=== PATIENT | female | born 1965 | race Caucasian/White ===

== ENCOUNTER 2018-04-07 09:29 | Emergency (ER) | payer OTHER, SELFPAY ==
[2018-04-07 09:30] VITALS: BP 150/80; PULSE 78; RESP 14; TEMP 36.5; O2SAT 98; BMI 27.8
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
== END 2018-04-07 10:19 | disposition home or self-care (01) ==
PROVIDERS: Emergency Provider Emergency Medicine; Family Provider Family Medicine; PCP Family Medicine
DX: S16.1XXA Strain of muscle, fascia and tendon at neck level, initial encounter (principal); V43.62XA Car passenger injured in collision with other type car in traffic accident, initial encounter; Y93.9 Activity, unspecified; Y92.410 Unspecified street and highway as the place of occurrence of the external cause; Y99.8 Other external cause status
CPT/HCPCS: 99282

== ENCOUNTER 2019-05-11 18:29 | Emergency (ER) | payer OTHER, SELFPAY ==
[2019-05-11 18:30] VITALS: BP 157/103; PULSE 76; RESP 17; TEMP 37.1; O2SAT 98; BMI 30.4
--- NOTE | 2019-05-11 18:46 | ED.VISSUMM ---
- ER Visit Summary Date of Service: 05/11/19 Chief Complaint: Left calf pain History of Present Illness: The patient is a 53 F who presents with left calf pain that began today. Patient states she was walking and went to walk real fast when she felt a pop in her left calf. Patient states her pain is aching and stabbing. Patient states the pain is over the mid calf area. Patient denies any paresthesias or weakness. Patient states her pain is worse with walking and better with rest. She denies any other injuries. Physical Examination: Vital signs are stable. Patient is afebrile. Patient is in no acute distress. Musculoskeletal exam reveals tenderness over the posterior aspect of the left calf. There is no bony crepitance or step-off. There is pain with dorsiflexion of the left ankle. There is no edema. There is no ecchymosis noted. Achilles tendon is intact. There is good range of motion of the left knee. Range of motion of the left ankle was limited in dorsiflexion secondary to pain. Sensation was intact to light touch bilaterally in the lower extremities. Strength is 5/5 bilateral and the lower extremities. Emergency Department Course and Treatment: Patient was advised that this is most likely a muscular strain of her left calf. Patient was instructed to use ice to the area. Patient was instructed to take ibuprofen as needed for pain. Patient was instructed to use her cane as needed to help with ambulation. Patient was given a note for work to limit her ambulation. Patient was instructed to follow-up with her primary care physician in 7 to 10 days. Patient understood and was agreeable with the plan. All questions were answered. Disposition: Discharge home Impression: Left calf strain This note was generated with [employer] dictation software. It may contain incorrect words, spelling, and punctuation that were not noted in review of the chart prior to signing ED Disposition - Plan for ED Patient: Disposition: Home or Assisted Living Diagnosis: Muscle strain of left lower leg Instructions: MUSCLE STRAIN, Extremity Referrals: Kwan Lundberg MD [Primary Care Provider] - 1-2 Weeks
== END 2019-05-11 19:12 | disposition home or self-care (01) ==
LOC: ED 18:51
PROVIDERS: Emergency Provider Emergency Medicine; Family Provider Family Medicine; PCP Family Medicine
DX: S86.912A Strain of unspecified muscle(s) and tendon(s) at lower leg level, left leg, initial encounter (principal); X50.9XXA Other and unspecified overexertion or strenuous movements or postures, initial encounter; Y93.01 Activity, walking, marching and hiking; Y92.9 Unspecified place or not applicable; Y99.9 Unspecified external cause status
CPT/HCPCS: 99282

== ENCOUNTER → 2020-06-22 11:26 | Outpatient (CLI) | payer OTHER, SELFPAY | LOC: MFPLAB 11:28 → LABSPEC 11:28 | PROVIDERS: PCP Family Medicine; Referring Provider Family Medicine; Visit Provider Family Medicine | DX: R09.89 Other specified symptoms and signs involving the circulatory and respiratory systems (principal) | CPT/HCPCS: 87635; U0003 ==

== ENCOUNTER 2021-09-22 15:59 | Outpatient (CLI) | payer OTHER, SELFPAY ==
[2021-09-22 16:02] LABS: Lyme Ab Screen Interpretation REF LAB
[2021-09-22 17:40] LABS: Absolute Lymphocyte Count 1.66 X10^3/uL (0.83-4.51); Absolute Neutrophil Count 5.1 X10^3/uL (2.0-7.7); Basophil# 0.02 X10^3/uL; Basophil% 0.3 % (0-1); Eosinophils% 1.3 % (0-5); Hematocrit 36.9 % (37-47); Hemoglobin 12.5 g/dL (12.0-15.0); Lymphocyte # 1.66 X10^3/ul (0.83-4.51); Lymphocyte % 22.4 % (19-41); Mean Corp Hgb Conc 33.9 g/dL (32-36); Mean Corpuscular Hgb 30.1 pg (27.0-32.0); Mean Corpuscular Volume 88.9 fL (81-99); Monocyte# 0.57 X10^3/uL; Monocyte% 7.7 % (0-10); NRBC Flagged by Analyzer 0 % (0-5); Neutrophil # 5.05 X10^3/uL (2.7-7.7); Platelet Count 360 K/mm3 (150-450); RBC Distribution Width CV 12.2 % (11.6-14.6); RBC Distribution Width SD 39.6 fl (35.1-43.9); Red Blood Count 4.15 M/mm3 (4.2-5.4); White Blood Count 7.4 K/mm3 (4.4-11.0)
[2021-09-22 17:56] LABS: Vitamin B12 658 pg/mL (211-911)
[2021-09-22 17:58] LABS: Erythrocyte Sedimentation Rate 15 mm/hr (0-30)
[2021-09-22 18:32] LABS: ALB/GLOB Ratio 0.9 RATIO (0.9-2.4); AST(SGOT) 21 U/L (15-37); Alanine Aminotransfer ALT/SGPT 41 U/L (13-56); Albumin, Serum 3.6 g/dL (3.2-5.0); Alkaline Phosphatase 94 U/L (45-117); Anion Gap 6 (5-15); BUN 19 mg/dL (7-18); BUN/Creat Ratio 27.6 RATIO (10-20); Calcium,Total 8.7 mg/dL (8.5-10.1); Chloride 110 mmol/L (98-107); Creatinine, Serum 0.69 mg/dL (0.55-1.02); EST Glomerular Filtration Rate 94 mL/min (>60); Est Glom Filt Rate - Afr Amer 113 mL/min (>60); Globulin 4.1 g/dL (2.2-4.2); Glucose 117 mg/dL (74-106); Potassium 4.1 mmol/L (3.5-5.1); Protein, Total 7.7 g/dL (6.4-8.2); Sodium Level 141 mmol/L (136-145); Thyroid Stim Hormone (TSH) 0.54 uIU/mL (0.358-3.74)
[2021-09-25 08:30] LABS: Lyme Scn Total Ab w/Rflx <0.91 ISR (0.00-0.90)
== END 2021-09-22 23:59 | disposition home or self-care (01) ==
LOC: MFPLAB 16:00
PROVIDERS: PCP Family Medicine; Referring Provider Family Medicine; Visit Provider Family Medicine
DX: R51.9 Headache, unspecified (principal); R41.89 Other symptoms and signs involving cognitive functions and awareness
CPT/HCPCS: 36415; 80053; 82607; 82746; 84443; 85025; 85652; 86618

== ENCOUNTER 2021-09-24 12:05 | Emergency (ER) | payer OTHER, SELFPAY ==
[2021-09-24 12:06] VITALS: BP 148/80; PULSE 75; RESP 14; TEMP 36.4; O2SAT 98; BMI 29.3
--- NOTE | 2021-09-24 12:30 | CT_ITS ---
We are attempting to reach an attending provider to discuss findings. An addendum with communication details will be sent when the communication is complete. 2STUDY: CT BRAIN WITHOUT CONTRAST REASON FOR EXAM: Female, 55 years old. Altered mental status and headache. RADIATION DOSAGE (If Supplied By Facility): CTDIvol = ( 44.99 ) mGy, DLP = ( 779.24 ) mGycm TECHNIQUE: Transaxial CT imaging of the brain was performed without administration of intravenous contrast material. Individualized dose optimization techniques were used for this CT. COMPARISON: No relevant priors. FINDINGS: Normal soft tissue structures. Normal calvarium. Extensive right parietal and temporal vasogenic edema associated with severe compression on the right lateral ventricle. There is approximately 15 mm shift of the midline to the left side. There is no evidence of intracranial hemorrhage or subdural hematoma. Normal brainstem. Normal cerebellum. Normal visualized paranasal sinuses. CT/Brain/Head without Contrast IMPRESSION: Extensive right parietal and temporal vasogenic edema with mass effect and shift of the midline to the left side concerning for underlying mass or tumor. Infarct is less likely. Correlation with MRI of the brain with contrast is recommended. Electronically Signed: Pro Barnes, at 13:36 EST ,
--- NOTE | 2021-09-24 12:32 | EX.ED.VIS.HA ---
HPI History of Present Illness Chief Complaint: Headache Narrative Narrative: Patient presents with her because of mental status changes and confusion that she has had over the last month. It is associated with headaches, sometimes on a daily basis. She states that the headaches are sometimes on the right side of her head. She denies any fevers or chills. No nausea or vomiting. No paresthesias. Her became concerned because they called their primary care physician because the patient has been having problems over the last few weeks concentrating. 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 Additionally, she passed the driveway to their house, and the driveway to pick her up at work. Earlier today, she thought it was Sunday and texted her friend/boss that she would not be coming into work today. She states that the headaches usually improved with [id number] medications. She denies any itchiness of her skin or color change. No abdominal pain. No diarrhea or dysuria. No other symptoms. She states she and her did have Covid approximately 1 to 2 months ago, but she only had a bad sore throat. She has been immunized against Covid. [facility] Medical History no medical history Home Medications multivitamin 1 tab PO DAILY 09/24/21 [History Last Taken Unknown] Allergy/AdvReac Type Severity Reaction Status Date / Time amoxicillin Allergy Itching Verified 09/24/21 12:10 Surgical History no surgical history Social History Smoking Status: Former smoker ROS ROS ED ROS Narrative Constitutional: No fever, no chills. HEENT: No sore throat. No neck pain. No loss of vision. No rhinorrhea. Cardiovascular: No chest pain. No palpitations. No pedal edema. Respiratory: No cough, no shortness of breath. Abdominal: No abdominal pain. No nausea. No vomiting. Genitourinary: No dysuria. No hematuria. Musculoskeletal: No myalgias. No arthralgias. Neurologic: Positive right-sided headaches. No dizziness. No lightheadedness. No paresthesias. Problems concentrating. Positive confusion. Skin: No rash. No change in color. Psychiatric: No depression. No anxiety. EXAM Physical Exam Narrative Exam Narrative: Afebrile. Vital signs noted. HEENT: Normocephalic. Atraumatic. PERRL, EOMI. Neck soft and supple. No point tenderness or step off. Cardiovascular: Regular rate and rhythm. No murmurs, rubs, or gallops appreciated. Respiratory: No tachypnea. Lungs clear to auscultation bilaterally. Gastrointestinal: Abdomen soft, nontender, with normoactive bowel sounds. No rebound or guarding. Neurological: Awake. Alert. Oriented x3. Nonfocal, nonlateralizing. DTRs equal and symmetric. Skin: No rash. Normal color. No pallor. Musculoskeletal: No pedal edema. Full range of motion extremities. Const Vital Signs: 09/24/21 12:06 09/24/21 14:46 Temperature 97.5 F L Temperature Source Temporal Pulse Rate 75 64 Respiratory Rate 14 18 Blood Pressure 148/80 H 128/63 H Blood Pressure Mean 102 84 Pulse Ox 98 98 Oxygen Delivery Method Room Air Room Air MDM MDM MDM Narrative Medical decision making narrative: Comprehensive work-up was pursued including CT of the brain, ammonia level, urine drug screen and alcohol level, and basic laboratory work. Discussion with the patient and her , I will look for signs of infection including pneumonia and urinary tract infection, or something neurological with CT imaging of the brain. Laboratory work is grossly unremarkable with a normal white count of 8.1, hemoglobin normal at 13.1, normal platelet count of 355. Electrolyte panel is grossly unremarkable except for glucose appropriately elevated at 115 with a normal anion gap of 5. Her urine drug screen is negative. Ethyl alcohol level is also negative. Ammonia level is normal. Of significance is the CT of the brain without contrast. I received a call from the radiologist stating that she has extensive vasogenic edema in the right temporoparietal area with 15 mm of midline shift. Underlying brain tumor cannot be ruled out. MRI is suggested, which is currently not available at this facility. Repeat examination shows her to remain awake, alert, with a normal neurological examination. In discussion with the patient and her , they are agreeable to transfer. Patient has been accepted at [facility] for an ED to ED transfer to Dr. Carroll. Transfer line did speak with Dr. Cummings with neurosurgery. Patient will be given Decadron 10 mg intravenously. It was not felt that mannitol or antiseizure medications were indicated. Patient will be transferred in stable condition. Lab Data Attestation: I reviewed the patient's lab results. Labs: Laboratory Results - last 24 hr 09/24/21 09/24/21 09/24/21 12:23 12:23 12:40 WBC 8.1 RBC 4.29 Hgb 13.1 Hct 37.9 MCV 88.3 MCH 30.5 MCHC 34.6 RDW Std Deviation 39.6 RDW Coeff of Richard 12.3 Plt Count 355 MPV 9.7 Immature Gran % (Auto) 0.400 Neut % (Auto) 70.9 H Lymph % (Auto) 20.7 [place] % (Auto) 5.7 Eos % (Auto) 1.9 Baso % (Auto) 0.4 Absolute Neuts (auto) 5.7 Absolute Lymphs (auto) 1.67 Nucleated RBC % 0 Sodium 139 Potassium 4.2 Chloride 107 Carbon Dioxide 27.0 Anion Gap 5 BUN 15 Creatinine 0.70 Estim Creat Clear Calc 80.75 Est GFR (MDRD) Af Amer 112 Est GFR (MDRD) Non-Af 93 BUN/Creatinine Ratio 21.6 H Glucose 115 H Calcium 9.3 Total Bilirubin 0.30 AST 22 ALT 39 Alkaline Phosphatase 100 Ammonia Total Protein 8.1 Albumin 3.8 Globulin 4.3 H Albumin/Globulin Ratio 0.9 Urine Color Urine Clarity Urine pH Ur Specific [place] Urine Protein Urine Glucose (UA) Urine Ketones Urine Occult Blood Urine Nitrite Urine Bilirubin Urine Urobilinogen Ur Leukocyte Esterase Urine RBC Urine WBC Ur Squamous Epith Cells Urine Bacteria Urine Mucus Urine Opiates Screen Urine Methadone Screen Ur Barbiturates Screen Ur Phencyclidine Scrn Ur Amphetamines Screen U Methamphetamin-MDMA U Benzodiazepines Scrn Urine Cocaine Screen U Cannabinoids Screen Ur Drug Screen Comment Ethyl Alcohol < 3.0 09/24/21 09/24/21 09/24/21 12:40 12:52 12:52 WBC RBC Hgb Hct MCV MCH MCHC RDW Std Deviation RDW Coeff of Richard Plt Count MPV Immature Gran % (Auto) Neut % (Auto) Lymph % (Auto) [place] % (Auto) Eos % (Auto) Baso % (Auto) Absolute Neuts (auto) Absolute Lymphs (auto) Nucleated RBC % Sodium Potassium Chloride Carbon Dioxide Anion Gap BUN Creatinine Estim Creat Clear Calc Est GFR (MDRD) Af Amer Est GFR (MDRD) Non-Af BUN/Creatinine Ratio Glucose Calcium Total Bilirubin AST ALT Alkaline Phosphatase Ammonia 18.0 Total Protein Albumin Globulin Albumin/Globulin Ratio Urine Color Yellow Urine Clarity Cloudy Urine pH 8.0 Ur Specific [place] 1.015 Urine Protein Negative Urine Glucose (UA) Normal Urine Ketones Negative Urine Occult Blood Negative Urine Nitrite Negative Urine Bilirubin Negative Urine Urobilinogen Normal Ur Leukocyte Esterase Negative Urine RBC 0 SEEN Urine WBC 0 SEEN Ur Squamous Epith Cells 0-5 SEEN Urine Bacteria 3+ Urine Mucus 0 SEEN Urine Opiates Screen NEGATIVE Urine Methadone Screen NEGATIVE Ur Barbiturates Screen NEGATIVE Ur Phencyclidine Scrn NEGATIVE Ur Amphetamines Screen NEGATIVE U Methamphetamin-MDMA NEGATIVE U Benzodiazepines Scrn NEGATIVE Urine Cocaine Screen NEGATIVE U Cannabinoids Screen NEGATIVE Ur Drug Screen Comment Ethyl Alcohol Radiography Diagnostic Testing: Clinical Impression(s) from Imaging Studies Brain CT 09/24/21 12:30 IMPRESSION: Extensive right parietal and temporal vasogenic edema with mass effect and shift of the midline to the left side concerning for underlying mass or tumor. Infarct is less likely. Correlation with MRI of the brain with contrast is recommended. Electronically Signed: Pro Barnes, at 13:36 EST , ADDENDUM: 09/24/21 1349 IMPRESSION: Extensive right parietal and temporal vasogenic edema with mass effect and shift of the midline to the left side concerning for underlying mass or tumor. Infarct is less likely. Correlation with MRI of the brain with contrast is recommended. N.B. : The above Results were Read Back by Pro Barnes to Matt Barfield MD, and understanding confirmed on 09/24/2021 13:42:10 (ET). Electronically Signed: Pro Barnes, at 13:36 EST , Chest X-Ray 09/24/21 13:02 IMPRESSION: No active pulmonary disease. Electronically Signed: Pro Barnes, at 13:43 EST , Discharge Plan Triage Chief Complaint: Headache ED Provider: Matt Barfield Dx/Rx/DC Orders Clinical Impression: Vasogenic brain edema, Confusion Prescriptions: No Action multivitamin Tablet 1 tab PO DAILY RF: 0 Primary Care Provider: Kwan Lundberg Referrals: Kwan Lundberg MD [Primary Care Provider] - Disposition Disposition: Acute Care Hospital Discharge Location: [facility]
[2021-09-24 12:36] LABS: Absolute Lymphocyte Count 1.67 X10^3/uL (0.83-4.51); Absolute Neutrophil Count 5.7 X10^3/uL (2.0-7.7); Basophil# 0.03 X10^3/uL; Basophil% 0.4 % (0-1); Eosinophil# 0.15 X10^3/uL; Eosinophils% 1.9 % (0-5); Hematocrit 37.9 % (37-47); Hemoglobin 13.1 g/dL (12.0-15.0); Lymphocyte # 1.67 X10^3/ul (0.83-4.51); Lymphocyte % 20.7 % (19-41); Mean Corp Hgb Conc 34.6 g/dL (32-36); Mean Corpuscular Hgb 30.5 pg (27.0-32.0); Mean Corpuscular Volume 88.3 fL (81-99); Mean Platelet Vol. 9.7 fl (6.2-12.0); Monocyte# 0.46 X10^3/uL; Monocyte% 5.7 % (0-10); NRBC Flagged by Analyzer 0 % (0-5); Neutrophil # 5.71 X10^3/uL (2.7-7.7); Neutrophil % 70.9 % (47-70); Platelet Count 355 K/mm3 (150-450); RBC Distribution Width CV 12.3 % (11.6-14.6); RBC Distribution Width SD 39.6 fl (35.1-43.9); Red Blood Count 4.29 M/mm3 (4.2-5.4); White Blood Count 8.1 K/mm3 (4.4-11.0)
[2021-09-24] MEDS: 0.9% Normal Saline 1,000 ML 1000 ML IV (12:46)
[2021-09-24 12:50] LABS: ALB/GLOB Ratio 0.9 RATIO (0.9-2.4); AST(SGOT) 22 U/L (15-37); Alanine Aminotransfer ALT/SGPT 39 U/L (13-56); Albumin, Serum 3.8 g/dL (3.2-5.0); Alkaline Phosphatase 100 U/L (45-117); Anion Gap 5 (5-15); BUN 15 mg/dL (7-18); BUN/Creat Ratio 21.6 RATIO (10-20); Calcium,Total 9.3 mg/dL (8.5-10.1); Chloride 107 mmol/L (98-107); EST Glomerular Filtration Rate 93 mL/min (>60); Est Glom Filt Rate - Afr Amer 112 mL/min (>60); Estimated Creatinine Clearance 80.75 ml/min; Globulin 4.3 g/dL (2.2-4.2); Glucose 115 mg/dL (74-106); Potassium 4.2 mmol/L (3.5-5.1); Protein, Total 8.1 g/dL (6.4-8.2); Sodium Level 139 mmol/L (136-145)
[2021-09-24 12:57] LABS: Mucous, Urine 0 SEEN /hpf (<or=2+); Red Blood Cells-Urine 0 SEEN /hpf (0-5); White Blood Cells 0 SEEN /hpf (0-5)
--- NOTE | 2021-09-24 13:02 | RAD_ITS ---
STUDY: X-RAY CHEST REASON FOR EXAM: Female, 55 years old. Coronary artery disease. TECHNIQUE: Single AP portable view of the chest. COMPARISON: None. FINDINGS: The lungs are clear and expanded. There is no demonstrated pleural abnormality. Normal size heart. Normal mediastinum and onur. Normal visualized pulmonary arteries. Normal visualized aortic arch and descending thoracic aorta. No demonstrated acute osseous changes. There is no demonstrated abnormality of the visualized soft tissue structures of the upper abdomen. RAD/Chest 1 View (Portable) IMPRESSION: No active pulmonary disease. Electronically Signed: Pro Barnes, at 13:43 EST ,
[2021-09-24 13:05] LABS: Color, Urine Yellow (Yellow); Glucose, Dipstick Normal (Normal); Ketone-Dipstick Negative (Negative); Leukocyte Esterase-Dipstick Negative /ul (Negative); Nitrite-Dipstick Negative (Negative); Occult Blood-Urine Negative /ul (Negative); Protein-Dipstick Negative (Negative); Specific Gravity, Urine 1.015 (1.002-1.030); Urine Bilirubin Dipstick Negative (Negative); Urine Clarity Cloudy (Clear); Urine Urobilinogen Normal (Normal)
[2021-09-24 13:12] LABS: Bacteria 3+ /hpf (None Seen); Squamous Epithelial Cells - UA 0-5 SEEN /hpf (5-10)
[2021-09-24 13:27] LABS: Amphetamine Urine VISTA NEGATIVE (<1000 ng/mL); Barbiturate Urine VISTA NEGATIVE (< 200 ng/mL); Benzodiazepine Urine VISTA NEGATIVE (< 200 ng/mL); Cocaine Urine VISTA NEGATIVE (< 300 ng/mL); Ecstacy Urine VISTA NEGATIVE (< 500 ng/mL); Methadone Urine VISTA NEGATIVE (< 300 ng/mL); PCP Urine VISTA NEGATIVE (< 25 ng/mL); THC Urine VISTA NEGATIVE (< 50 ng/mL); Vista UDS pH Range 7
[2021-09-24 13:47] LABS: Alcohol, Blood (Medical)-Serum < 3.0 mg/dL
[2021-09-24 14:46] VITALS: BP 128/63; PULSE 64; RESP 18; O2SAT 98
[2021-09-24 14:55] VITALS: BP 128/63; PULSE 73; RESP 18; TEMP 36.4; O2SAT 99
[2021-09-24] MEDS: dexAMETHasone 10 MG/ML Vial IV (15:00)
== END 2021-09-24 16:11 | disposition short-term general hospital (02) ==
PROVIDERS: Emergency Provider Emergency Medicine; PCP Family Medicine; Visit Provider Emergency Medicine
DX: G93.6 Cerebral edema (principal); R41.0 Disorientation, unspecified; Z87.891 Personal history of nicotine dependence; Z86.16 Personal history of COVID-19
CPT/HCPCS: 70450; 71045; 80053; 80307; 81001; 82077; 82140; 85025; 96361; 96374; 99285; J7030; A4216

== ENCOUNTER 2022-01-19 09:42 | Outpatient (RCR) | payer OTHER, SELFPAY ==
--- NOTE | 2022-01-20 10:52 | HP.OTFCE_ITS ---
Floor (Occasional 1-33% of Day): 20 Floor (Frequent 34-66% of Day): 10 Floor (Constant 67-100% of Day): 0 Floor PDL: Light Knee (Occasional 1-33% of Day): 20 Knee (Frequent 34-66% of Day): 10 Knee (Constant 67-100% of Day): 0 Knee PDL: Light Waist (Occasional 1-33% of Day): 20 Waist (Frequent 34-66% of Day): 10 Waist (Constant 67-100% of Day): 0 Waist PDL: Light Shoulder (Occasional 1-33% of Day): 15 Shoulder (Frequent 34-66% of Day): 8 Shoulder (Constant 67-100% of Day): 0 Shoulder PDL: Sedentary-Light Overhead (Occasional 1-33% of Day): 15 Overhead (Frequent 34-66% of Day): 8 Overhead (Constant 67-100% of Day): 0 Overhead PDL: Sedentary-Light Comments: Pt. demonstrating overall physical demand level (PDL) is Light. Floor PDL light, Knee PDL Light, Waist PDL is Light, Shoulder PDL is Sedentary Light, Overhead PDL is Sedentary Light Bending: Occasional Ability (1-33% of day) Comments: 10x 26.34 seconds 10xFast 20.88 seconds, no distal support, light headed Squatting: Occasional Ability (1-33% of day) Comments: 10x 23.88 seconds 10xFast 19.67 seconds, used 1 hand support Kneeling: Occasional Ability (1-33% of day) Comments: 10x 27.10 seconds 10xFast 26.12 seconds, used 1 hand support Reaching out: Frequent Ability (34-66% of day) Comments: 10x 13.35 seconds 10xFast 10.57 seconds, seated Reaching up: Frequent Ability (34-66% of day) Comments: 10x 12.00 seconds 10xFast 9.86 seconds, seated Sitting: Frequent Ability (34-66% of day) Comments: reports ability to sit for a couple of hours Walking: Occasional Ability (1-33% of day) Comments: considered poor for her age group Standing: Occasional Ability (1-33% of day) Comments: currently able to stand 1-2 hours at a time Duration Sedentary Sedentary Light Light Light Medium Medium Medium Heavy Very Heavy Heavy Occasional (0-33% of day) Frequent (34-66% of day) Constant (67-100% of day) 10 # Negligible Negligible 15 # 8 # Negligible 20 # 10# Negli. 35 # 18 # 7 # 50 # 25 # 10 # 75 # 100 # >100 # 38 # 50 # >50 # 15 # 20 # >20 # Weight:: 78.925 kg Hand Dominance: Left BP (Medication Use/Usual Values per pt report): seizure medications Medical History Including Restrictions: Brain tumor removed 09-28-21. Seizure precautions. Client reporting she had a 5# lifting restriction, she then reported she is unsure if she currently has a lifting restriction. Diagnoses: Glioblastoma. Symptoms: Decreased energy/endurance, light headedness, weakness in Bilateral Upper Extremities (BUE). Decreased ability to multitask. Avoids driving in busy areas and on highways, reporting that these are overwhelming (comfortable with driving for 5 minutes). Pain: No pain was reported throughout this FCE. When she does have pain it is a headache. Pain assessed using Lionel Pain questionnaire: client related this to her headaches. ? Sensory Score = 1 point. ? Affective Score = 1 point. ? Evaluative Score = 0 points. ? Miscellaneous Score = 1 point. ? Pain Rating Index (LEANN) = 3 points. ? Present Pain Intensity (PPI) = 0 points. ? Pain Score Interpretation: The higher the score, the greater the perceived pain. Total 3/50. Work History: Currently not working secondary to tumor removal from brain (09-28-21 per pt. report). Client reported she was working full-time at [employer] in the [employer] until September 27, 2021. Client reporting that she works in the [employer] where it can be hot in summer and cold in winter. 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 The employee is occasionally required to sit , climb, balance, stoop, kneel, crouch, or crawl. The employee must regularly lift /move up to 50# & occasionally lift/move 80#. Specific vision , color vision, peripheral vision, depth perception, and ability to adjust focus. Client reporting that this is the majority of my day. About 1 hour in maciel window at desk. Behavioral: Client was pleasant and cooperative throughout FCE. Client stating she liked her job because it involved moving around so much and would like to return. ADLS: Client reporting on functional activities questionnaire that she is independent with ADL's, she can shop for groceries, do laundry, and general cleaning housework. Pt. reported that she is able to drive for 5 minutes at a time (not on a highway or on a busy street). Physical Examination: At start of FCE: BP 142/85, O2 99%, HR 69, Pain 0. At end of FCE BP 134/76, HR 73, O2 99%, Pain 0. Referred by Kelechi Jackson for FCE to return to work per client request to return to work. ROM: Through visual observation of AROM: Shoulder flexion/extension B UE WFL, Abduction/Adduction B UE WFL, Elbow flexion/extension BUE WFL, Forearm supination /pronation BUE WFL, Wrist flexion/extension BUE WFL, Composite fist B Hands WFL, opposition of fingers B thumbs to index finger MCP pad. Hip flexion/extension B LE WFL, Knee flexion/extension B LE WFL, ankle plantar flex B LE WFL. Strength: Strength was assessed using Mini FET: Shoulder flexion R 17# L13.9# extension R 12#, L 14.2#. Elbow flexion R 11#, L 12.1# extension R 12.3# L 10.4#. Hip flexion R 24#, L 23# extension R 19.1# L 18#. Knee flexion R 17.8# L 16.6# extension R 15.1# L 13.4# Right Entertainer Or Variety Artist Strength Average: 56.00 Right Entertainer Or Variety Artist Strength Percentile: 24% Left Entertainer Or Variety Artist Strength Average: 60.00 Left Entertainer Or Variety Artist Strength Percentile: 38% Right Lateral Pinch Average: 15.66 Right Lateral Pinch Percentile: 90% Left Lateral Pinch Average: 16.33 Left Lateral Pinch Percentile: > 90% Right Tripod Pinch Average: 18.33 Right Tripod Pinch Percentile: > 90% Left Tripod Pinch Average: 19.66 Left Tripod Pinch Percentile: > 90% Comments: Entertainer Or Variety Artist and pinch were assessed using dynamometer and pinch meter. Her decorative engraver strength is low and pinch is good. Sensation: Sensation was assessed using Dakota-Bnoita monofilament testing (2.83 is normal sensation, 3.61 is diminished light touch, 4.74 is loss of protective sensation). R digits 1-5: Thumb 3.61 IF 3.22 MF 3.22 RF 3.22 PF 3.22. L digits 1-5: Thumb 3.61 IF 3.22 MF 3.22 RF 3.22 PF 3.22 Fine Motor: Fine motor was assessed using the 9-hole peg test: R hand 23.26 seconds 25th% L hand 23.71 seconds 50th% Balance: Balance was assessed using the Forward reach test (FRT) and the single leg stance (standing on 1 leg with hands on hips). FRT 3 trials: 6.5 inches, 6.5 inches, 5.5 inches. Single leg stance 1 trial each leg: On R foot 48.85 seconds, on L foot 1.08 min Bending: Bending was assessed by patient standing and bending to floor 3 times (3x), 10 times (10x), and 10 times fast (10xFast). 3x completed, 10x 26.34 seconds, 10xFast 20.88 seconds. Pain 0. Head feels a little disoriented Seated rest break at end of task. occasional ability (1-33% of the day) Squatting: Squatting assessed by patient standing squatting to floor 3 times (3x), 10 times (10x), and 10 times fast (10xFast). 3x using left hand on chair 10x 23.88 seconds using left hand on chair 10xFast 19.67 seconds using left hand on chair. Pain 0. Head feels ok. occasional ability (1-33% of the day) Kneeling: Kneeling assessed by client kneeling to floor 3 times (3x), 10 times (10x), and 10 times fast (10xFast). 3x using table with L hand 10x 27.10 seconds using table with L hand 10xFast used R hand 26.12 seconds. Pain 0 legs feel used. Head feels ok. occasional ability (1-33% of the day) Reaching out/up: Reaching out & Up assessed by client seated and reaching out with BUE's and reaching BUE's up 3 times (3x), 10 times (10x), and 10 times fast (10xFast). Reaching out Seated 3x completed 10x 13.35 seconds, 10xFast 10.57. Pain 0. Reaching up 3x completed 10x 12.00 seconds 10xFast 9.86 seconds. Pain 0. Head feels good. frequent ability (34-66% of the day) Walking: Walking was assessed by using the Timed up and go (TUG) and an 18 minute walk. TUG completed 3 trials: 10.37 seconds, 9.76 seconds, 9.73 seconds. Walked for 18 minutes outside on concrete path 1.6 miles starting HR 110 ending HR 87. This is considered poor for her age group based on information collected from the [facility], [place] on Exercise. Standing: Client reported on functional activities questionnaire that she is able to stand 1-2 hours at a time occasional ability (1-33% of the day). Her most comfortable position is switching between standing and sitting. Client did not display adverse reactions during standing tasks. Sitting: Client reported on functional activities questionnaire that she is able to sit for 6 hours a day. Frequent ability (34-66% of day). Her most comfortable position is switching between standing and sitting. Client did not display adverse reactions during sitting tasks. Climbing Stairs: Stairs assessed using the Step test evaluation of performance on stairs, 10 steps. Ascending 9/10 Descending 8/10 total 17/20. No hesitation, step through pattern, normal foot clearance, stays in midline, continuous stepping, required hand rail going up x2 and required rail for 10 steps down. Floor Lift: Dynamic lifting capacity is assessed by raising or lowering an object from one level to another (includes upward pulling). 3 boxes & a waist high shelf. Weight 20#. Vera exertion light/moderate (2-3/10). Pain 0. Body mechanics provided 1 vc to widen feet for a lower squat. End HR 76 seated rest break. Floor PDL Light. Knee Lift: Weight 20#. Vera exertion moderate (3/10). Pain 0. Body mechanics good. End HR 83. Knee PDL Light Waist Lift: Weight 20#. Pain 0. Vera exertion a little intense (4/10). Body mechanics good. End HR 90. Waist PDL is Light Shoulder Lift: Weight 15#. Vera exertion moderate (3/10). Pain 0. Body mechanics- appeared to be more difficult. End HR 86. Shoulder PDL is Sedentary Light Overhead Lift: Weight 15#. Vera exertion moderate (3/10). Pain 0. Body mechanics- used correct lifting tech. End HR 76. Overhead PDL is Sedentary Light Carrying: Transporting an object, usually holding it in the hands or arms, or on the shoulder. Went 25ft turned around and came back. Duration 32.22 seconds. Weight 10 # each hand, declined to increase weight. Distance 50ft. Pain 0. Head feels ok. Vera moderate (3/10). End HR 88 O2 98% Comments: Overall physical demand level (PDL) is Light. Client has decreased UB & decorative engraver strength. Endurance has decreased secondary to surgery and she is starting to regain through home exercise. Encouraged pt. to slowly build upon her gains and increase walking to daily and slowly increasing the distance. Continue to use weights for UB strengthening. Therapy assessment was directly supervised and doc. reviewed and approved by Angely RICARDO/Nichelle, CHT.
--- NOTE | 2022-01-20 10:52 | HP.OTFCE.D ---
FCE D/C Summary - Discharge YOMI MCGRAW was seen for a one time visit for an FCE on 01/19/22 and is discharged.
== END 2022-01-19 19:00 | disposition home or self-care (01) ==
LOC: OT 09:42
PROVIDERS: PCP Family Medicine
DX: Z01.89 Encounter for other specified special examinations (principal)
CPT/HCPCS: 97750

== ENCOUNTER → 2022-03-14 | Outpatient (CLI) | payer OTHER, SELFPAY ==
[2022-03-14 12:38] LABS: Absolute Lymphocyte Count 0.28 X10^3/uL (0.83-4.51); Absolute Neutrophil Count 3.9 X10^3/uL (2.0-7.7); Eosinophil# 0.11 X10^3/uL; Eosinophils% 2.4 % (0-5); Hematocrit 37.5 % (37-47); Hemoglobin 12.8 g/dL (12.0-15.0); Lymphocyte # 0.28 X10^3/ul (0.83-4.51); Lymphocyte % 6.1 % (19-41); Mean Corp Hgb Conc 34.1 g/dL (32-36); Mean Platelet Vol. 9.6 fl (6.2-12.0); Monocyte# 0.32 X10^3/uL; Monocyte% 6.9 % (0-10); NRBC Flagged by Analyzer 0 % (0-5); Neutrophil # 3.89 X10^3/uL (2.7-7.7); Neutrophil % 84.4 % (47-70); POSITIVE DIFFERENTIAL YES; Platelet Count 212 K/mm3 (150-450); RBC Distribution Width CV 11.9 % (11.6-14.6); RBC Distribution Width SD 37.7 fl (35.1-43.9); Red Blood Count 4.26 M/mm3 (4.2-5.4); White Blood Count 4.6 K/mm3 (4.4-11.0)
[2022-03-14 12:42] LABS: Differential Indicated SCAN CRITERIA MET
[2022-03-14 12:55] LABS: ALB/GLOB Ratio 1.1 RATIO (0.9-2.4); AST(SGOT) 17 U/L (15-37); Alanine Aminotransfer ALT/SGPT 28 U/L (13-56); Albumin, Serum 3.8 g/dL (3.2-5.0); Alkaline Phosphatase 74 U/L (45-117); Anion Gap 2 (5-15); BUN 14 mg/dL (7-18); BUN/Creat Ratio 21.2 RATIO (10-20); Calcium,Total 9.3 mg/dL (8.5-10.1); Chloride 108 mmol/L (98-107); Creatinine, Serum 0.66 mg/dL (0.55-1.02); EST Glomerular Filtration Rate 98 mL/min (>60); Est Glom Filt Rate - Afr Amer 119 mL/min (>60); Globulin 3.5 g/dL (2.2-4.2); Glucose 86 mg/dL (74-106); Potassium 4.3 mmol/L (3.5-5.1); Protein, Total 7.3 g/dL (6.4-8.2); Sodium Level 137 mmol/L (136-145)
[2022-03-14 13:15] LABS: Differential Comment SCANNED
== END | disposition home or self-care (01) ==
PROVIDERS: PCP Family Medicine; Referring Provider Family Medicine
DX: C71.2 Malignant neoplasm of temporal lobe (principal)
CPT/HCPCS: 36415; 80053; 85025

== ENCOUNTER → 2022-03-20 | Outpatient (CLI) | payer OTHER, SELFPAY ==
[2022-03-20 10:12] LABS: Hematocrit 37.5 % (37-47); Hemoglobin 12.5 g/dL (12.0-15.0); Mean Corp Hgb Conc 33.3 g/dL (32-36); Mean Corpuscular Hgb 29.3 pg (27.0-32.0); Mean Corpuscular Volume 87.8 fL (81-99); Mean Platelet Vol. 9.8 fl (6.2-12.0); Platelet Count 132 K/mm3 (150-450); RBC Distribution Width SD 38.4 fl (35.1-43.9); Red Blood Count 4.27 M/mm3 (4.2-5.4); White Blood Count 3.6 K/mm3 (4.4-11.0)
[2022-03-20 10:50] LABS: AST(SGOT) 17 U/L (15-37); Alanine Aminotransfer ALT/SGPT 27 U/L (13-56); Albumin, Serum 3.7 g/dL (3.2-5.0); Alkaline Phosphatase 74 U/L (45-117); Anion Gap 5 (5-15); BUN 15 mg/dL (7-18); BUN/Creat Ratio 22.8 RATIO (10-20); Calcium,Total 9.5 mg/dL (8.5-10.1); Chloride 110 mmol/L (98-107); Creatinine, Serum 0.66 mg/dL (0.55-1.02); EST Glomerular Filtration Rate 98 mL/min (>60); Est Glom Filt Rate - Afr Amer 119 mL/min (>60); Globulin 3.8 g/dL (2.2-4.2); Glucose 78 mg/dL (74-106); Protein, Total 7.5 g/dL (6.4-8.2); Sodium Level 140 mmol/L (136-145)
[2022-03-21 14:38] LABS: Differential Indicated MANUAL DIFF
[2022-03-21 14:40] LABS: Lymphocyte 12 % (19-41); Monocyte 5 % (0-10); Neutrophil-Segmented 83 % (47-70); Platelet Estimate ADEQUATE (ADEQ); Total Cells Counted 100 (MANUAL DIFF)
[2022-03-21 14:41] LABS: Red Cell Morphology NORM C+C NORMAL (NORM C&C)
[2022-03-22 15:01] LABS: Absolute Lymphocyte Count 0.43 X10^3/uL (0.83-4.51)
== END | disposition home or self-care (01) ==
PROVIDERS: PCP Family Medicine
DX: C71.2 Malignant neoplasm of temporal lobe (principal)
CPT/HCPCS: 36415; 80053; 85025; 85027

== ENCOUNTER → 2022-03-24 | Outpatient (CLI) | payer OTHER, SELFPAY ==
[2022-03-24 10:53] LABS: AST(SGOT) 17 U/L (15-37); Alanine Aminotransfer ALT/SGPT 29 U/L (13-56); Albumin, Serum 3.7 g/dL (3.2-5.0); Alkaline Phosphatase 77 U/L (45-117); Anion Gap 5 (5-15); BUN 14 mg/dL (7-18); BUN/Creat Ratio 21.1 RATIO (10-20); Calcium,Total 9.4 mg/dL (8.5-10.1); Chloride 109 mmol/L (98-107); Creatinine, Serum 0.66 mg/dL (0.55-1.02); EST Glomerular Filtration Rate 98 mL/min (>60); Est Glom Filt Rate - Afr Amer 118 mL/min (>60); Globulin 3.6 g/dL (2.2-4.2); Glucose 87 mg/dL (74-106); Protein, Total 7.3 g/dL (6.4-8.2); Sodium Level 140 mmol/L (136-145)
[2022-03-24 11:28] LABS: Absolute Neutrophil Count 2.5 X10^3/uL (2.0-7.7); Basophil# 0.02 X10^3/uL; Basophil% 0.6 % (0-1); Eosinophil# 0.06 X10^3/uL; Eosinophils% 1.9 % (0-5); Hematocrit 36.9 % (37-47); Hemoglobin 12.3 g/dL (12.0-15.0); Lymphocyte % 9.3 % (19-41); Mean Corp Hgb Conc 33.3 g/dL (32-36); Mean Corpuscular Hgb 29.6 pg (27.0-32.0); Mean Corpuscular Volume 88.9 fL (81-99); Mean Platelet Vol. 9.4 fl (6.2-12.0); Monocyte# 0.31 X10^3/uL; Monocyte% 9.6 % (0-10); NRBC Flagged by Analyzer 0 % (0-5); Neutrophil # 2.53 X10^3/uL (2.7-7.7); Neutrophil % 78.3 % (47-70); POSITIVE DIFFERENTIAL YES; Platelet Count 163 K/mm3 (150-450); RBC Distribution Width CV 12.2 % (11.6-14.6); RBC Distribution Width SD 38.7 fl (35.1-43.9); Red Blood Count 4.15 M/mm3 (4.2-5.4); White Blood Count 3.2 K/mm3 (4.4-11.0)
[2022-03-24 11:30] LABS: Differential Indicated SCAN CRITERIA MET
[2022-03-24 11:31] LABS: Platelet Estimate ADEQUATE (ADEQ); Red Cell Morphology NORM C+C NORMAL (NORM C&C)
[2022-03-28 07:13] LABS: Pathologist Review Reviewed
== END | disposition home or self-care (01) ==
PROVIDERS: PCP Family Medicine; Referring Provider Family Medicine
DX: C71.2 Malignant neoplasm of temporal lobe (principal)
CPT/HCPCS: 36415; 80053; 85025

== ENCOUNTER → 2022-04-26 | Outpatient (CLI) | payer OTHER, MEDICAID, SELFPAY ==
[2022-04-26 10:06] LABS: Absolute Lymphocyte Count 0.24 X10^3/uL (0.83-4.51); Absolute Neutrophil Count 2.8 X10^3/uL (2.0-7.7); Eosinophil# 0.08 X10^3/uL; Eosinophils% 2.4 % (0-5); Hematocrit 34.9 % (37-47); Hemoglobin 11.6 g/dL (12.0-15.0); Lymphocyte # 0.24 X10^3/ul (0.83-4.51); Lymphocyte % 7.2 % (19-41); Mean Corp Hgb Conc 33.2 g/dL (32-36); Mean Corpuscular Hgb 30.1 pg (27.0-32.0); Mean Corpuscular Volume 90.4 fL (81-99); Mean Platelet Vol. 9.4 fl (6.2-12.0); Monocyte# 0.24 X10^3/uL; Monocyte% 7.2 % (0-10); NRBC Flagged by Analyzer 0 % (0-5); Neutrophil # 2.78 X10^3/uL (2.7-7.7); Neutrophil % 83.2 % (47-70); POSITIVE DIFFERENTIAL YES; Platelet Count 140 K/mm3 (150-450); RBC Distribution Width SD 45.1 fl (35.1-43.9); Red Blood Count 3.86 M/mm3 (4.2-5.4); White Blood Count 3.3 K/mm3 (4.4-11.0)
[2022-04-26 10:14] LABS: Differential Indicated SCAN CRITERIA MET
[2022-04-26 10:38] LABS: Platelet Estimate SLT DEC (ADEQ); Red Cell Morphology NORM C+C NORMAL (NORM C&C)
[2022-04-26 10:46] LABS: ALB/GLOB Ratio 1.2 RATIO (0.9-2.4); AST(SGOT) 24 U/L (15-37); Alanine Aminotransfer ALT/SGPT 42 U/L (13-56); Albumin, Serum 3.9 g/dL (3.2-5.0); Alkaline Phosphatase 89 U/L (45-117); Anion Gap 6 (5-15); BUN 10 mg/dL (7-18); BUN/Creat Ratio 15.3 RATIO (10-20); Calcium,Total 9.5 mg/dL (8.5-10.1); Chloride 109 mmol/L (98-107); Creatinine, Serum 0.65 mg/dL (0.55-1.02); EST Glomerular Filtration Rate 99 mL/min (>60); Est Glom Filt Rate - Afr Amer 120 mL/min (>60); Globulin 3.2 g/dL (2.2-4.2); Glucose 79 mg/dL (74-106); Potassium 4.1 mmol/L (3.5-5.1); Protein, Total 7.1 g/dL (6.4-8.2); Sodium Level 143 mmol/L (136-145)
[2022-04-27 15:08] LABS: Pathologist Review Reviewed
== END | disposition home or self-care (01) ==
PROVIDERS: PCP Family Medicine; Referring Provider Family Medicine
DX: C71.2 Malignant neoplasm of temporal lobe (principal)
CPT/HCPCS: 36415; 80053; 85025

== ENCOUNTER → 2022-05-29 | Outpatient (CLI) | payer OTHER, SELFPAY ==
[2022-05-29 10:00] LABS: Absolute Lymphocyte Count 0.22 X10^3/uL (0.83-4.51); Absolute Neutrophil Count 2.6 X10^3/uL (2.0-7.7); Basophil# 0.01 X10^3/uL; Basophil% 0.3 % (0-1); Eosinophil# 0.07 X10^3/uL; Eosinophils% 2.2 % (0-5); Hematocrit 32.9 % (37-47); Lymphocyte # 0.22 X10^3/ul (0.83-4.51); Mean Corp Hgb Conc 33.4 g/dL (32-36); Mean Corpuscular Hgb 31.4 pg (27.0-32.0); Mean Platelet Vol. 9.2 fl (6.2-12.0); Monocyte# 0.21 X10^3/uL; Monocyte% 6.7 % (0-10); NRBC Flagged by Analyzer 0 % (0-5); Neutrophil # 2.62 X10^3/uL (2.7-7.7); Neutrophil % 83.2 % (47-70); POSITIVE DIFFERENTIAL YES; Platelet Count 212 K/mm3 (150-450); RBC Distribution Width CV 14.3 % (11.6-14.6); RBC Distribution Width SD 48.5 fl (35.1-43.9); White Blood Count 3.2 K/mm3 (4.4-11.0)
[2022-05-29 10:36] LABS: ALB/GLOB Ratio 1.1 RATIO (0.9-2.4); AST(SGOT) 21 U/L (15-37); Alanine Aminotransfer ALT/SGPT 45 U/L (13-56); Albumin, Serum 3.5 g/dL (3.2-5.0); Alkaline Phosphatase 96 U/L (45-117); Anion Gap 8 (5-15); BUN 19 mg/dL (7-18); BUN/Creat Ratio 30.4 RATIO (10-20); Calcium,Total 9.1 mg/dL (8.5-10.1); Chloride 108 mmol/L (98-107); Creatinine, Serum 0.62 mg/dL (0.55-1.02); EST Glomerular Filtration Rate 104 mL/min (>60); Est Glom Filt Rate - Afr Amer 126 mL/min (>60); Globulin 3.2 g/dL (2.2-4.2); Glucose 75 mg/dL (74-106); Potassium 3.9 mmol/L (3.5-5.1); Protein, Total 6.7 g/dL (6.4-8.2); Sodium Level 142 mmol/L (136-145)
[2022-05-29 10:46] LABS: Differential Indicated SCAN CRITERIA MET
[2022-05-29 10:51] LABS: Platelet Estimate ADEQUATE (ADEQ); Red Cell Morphology NORM C+C NORMAL (NORM C&C)
[2022-05-30 13:50] LABS: Pathologist Review Reviewed
== END | disposition home or self-care (01) ==
PROVIDERS: PCP Family Medicine; Referring Provider Family Medicine
DX: C71.2 Malignant neoplasm of temporal lobe (principal)
CPT/HCPCS: 36415; 80053; 85025

== ENCOUNTER → 2022-06-26 | Outpatient (CLI) | payer OTHER, SELFPAY ==
[2022-06-26 09:53] LABS: Absolute Lymphocyte Count 0.26 X10^3/uL (0.83-4.51); Absolute Neutrophil Count 2.6 X10^3/uL (2.0-7.7); Basophil# 0.01 X10^3/uL; Basophil% 0.3 % (0-1); Eosinophil# 0.13 X10^3/uL; Hematocrit 33.4 % (37-47); Hemoglobin 11.3 g/dL (12.0-15.0); Lymphocyte # 0.26 X10^3/ul (0.83-4.51); Mean Corp Hgb Conc 33.8 g/dL (32-36); Mean Corpuscular Hgb 32.1 pg (27.0-32.0); Mean Corpuscular Volume 94.9 fL (81-99); Mean Platelet Vol. 9.2 fl (6.2-12.0); Monocyte# 0.26 X10^3/uL; NRBC Flagged by Analyzer 0 % (0-5); Neutrophil # 2.56 X10^3/uL (2.7-7.7); Neutrophil % 79.4 % (47-70); POSITIVE DIFFERENTIAL YES; Platelet Count 159 K/mm3 (150-450); RBC Distribution Width CV 13.2 % (11.6-14.6); RBC Distribution Width SD 45.7 fl (35.1-43.9); Red Blood Count 3.52 M/mm3 (4.2-5.4); White Blood Count 3.2 K/mm3 (4.4-11.0)
[2022-06-26 09:57] LABS: Differential Indicated SCAN CRITERIA MET
[2022-06-26 10:13] LABS: ALB/GLOB Ratio 1.1 RATIO (0.9-2.4); AST(SGOT) 27 U/L (15-37); Alanine Aminotransfer ALT/SGPT 52 U/L (13-56); Albumin, Serum 3.6 g/dL (3.2-5.0); Alkaline Phosphatase 100 U/L (45-117); Anion Gap 8 (5-15); BUN 11 mg/dL (7-18); BUN/Creat Ratio 15.7 RATIO (10-20); Calcium,Total 8.9 mg/dL (8.5-10.1); Chloride 106 mmol/L (98-107); EST Glomerular Filtration Rate 92 mL/min (>60); Est Glom Filt Rate - Afr Amer 111 mL/min (>60); Globulin 3.2 g/dL (2.2-4.2); Glucose 90 mg/dL (74-106); Potassium 4.2 mmol/L (3.5-5.1); Protein, Total 6.8 g/dL (6.4-8.2); Sodium Level 140 mmol/L (136-145)
[2022-06-26 10:35] LABS: Differential Comment SCANNED
[2022-06-27 15:01] LABS: Pathologist Review Reviewed
== END | disposition home or self-care (01) ==
LOC: MFPLAB 08:10
PROVIDERS: PCP Family Medicine; Referring Provider Family Medicine
DX: C71.2 Malignant neoplasm of temporal lobe (principal)
CPT/HCPCS: 36415; 80053; 85025

== ENCOUNTER → 2022-08-11 | Outpatient (CLI) | payer MEDICAID, SELFPAY ==
[2022-08-11 10:22] LABS: Absolute Lymphocyte Count 0.31 X10^3/uL (0.83-4.51); Absolute Neutrophil Count 2.7 X10^3/uL (2.0-7.7); Basophil# 0.01 X10^3/uL; Basophil% 0.3 % (0-1); Eosinophil# 0.07 X10^3/uL; Eosinophils% 2.1 % (0-5); Hematocrit 33.1 % (37-47); Hemoglobin 11.3 g/dL (12.0-15.0); Lymphocyte # 0.31 X10^3/ul (0.83-4.51); Lymphocyte % 9.3 % (19-41); Mean Corp Hgb Conc 34.1 g/dL (32-36); Mean Corpuscular Hgb 32.8 pg (27.0-32.0); Mean Corpuscular Volume 95.9 fL (81-99); Mean Platelet Vol. 9.2 fl (6.2-12.0); NRBC Flagged by Analyzer 0 % (0-5); Neutrophil # 2.73 X10^3/uL (2.7-7.7); POSITIVE DIFFERENTIAL YES; Platelet Count 248 K/mm3 (150-450); RBC Distribution Width CV 12.3 % (11.6-14.6); Red Blood Count 3.45 M/mm3 (4.2-5.4); White Blood Count 3.3 K/mm3 (4.4-11.0)
[2022-08-11 10:34] LABS: Differential Indicated SCAN CRITERIA MET
[2022-08-11 10:42] LABS: ALB/GLOB Ratio 1.2 RATIO (0.9-2.4); AST(SGOT) 18 U/L (15-37); Alanine Aminotransfer ALT/SGPT 40 U/L (13-56); Albumin, Serum 3.8 g/dL (3.2-5.0); Alkaline Phosphatase 90 U/L (45-117); Anion Gap 4 (5-15); BUN 16 mg/dL (7-18); BUN/Creat Ratio 23.8 RATIO (10-20); Calcium,Total 9.3 mg/dL (8.5-10.1); Chloride 111 mmol/L (98-107); Creatinine, Serum 0.67 mg/dL (0.55-1.02); EST Glomerular Filtration Rate 96 mL/min (>60); Est Glom Filt Rate - Afr Amer 116 mL/min (>60); Globulin 3.2 g/dL (2.2-4.2); Glucose 95 mg/dL (74-106); Potassium 4.1 mmol/L (3.5-5.1); Sodium Level 143 mmol/L (136-145)
[2022-08-11 11:16] LABS: Pathologist Review May foll
== END | disposition home or self-care (01) ==
PROVIDERS: PCP Family Medicine; Referring Provider Family Medicine
DX: C71.2 Malignant neoplasm of temporal lobe (principal)
CPT/HCPCS: 36415; 80053; 85025

== ENCOUNTER → 2023-04-09 | Outpatient (CLI) | payer MEDICAID, SELFPAY ==
--- NOTE | 2023-04-09 09:49 | NM_ITS ---
CLINICAL: 57-year-old female with history of known cholelithiasis, complaint of nausea. RADIONUCLIDE HEPATOBILIARY SCINTIGRAPHY COMPARISON: None available FINDINGS: Following the intravenous administration of 5.8 mCi of 99m Tc Mebrofenin, hepatobiliary images reveal: 1. Relatively prompt and homogeneous radiopharmaceutical concentration is noted by a normal sized liver. No parenchymal defects are identified. 2. Gallbladder activity is identified at 15 minutes post radiopharmaceutical administration. 3. Small intestinal tract is observed at 45 minutes following tracer injection. 4. Washout of the radiopharmaceutical by the hepatic parenchyma appears qualitatively normal. Cholecystokinin (0.02 ug/kg) was administered intravenously over a 30-minute period. The post CCK gallbladder ejection fraction calculated at 20 minutes following Cholecystokinin administration was noted to be < 5 % (normal greater than 35%). CO/Hepatobilliary Img w/Pharm Int IMPRESSION: 1. ABNORMAL 99m Tc Mebrofenin hepatobiliary imaging examination with Cholecystokinin. A. A gallbladder ejection fraction calculated to be less than 35% following the administration of Cholecystokinin is consistent with the presence of functional hepatobiliary disease (gallbladder and/or sphincter of Oddi dyskinesia) and/or organic hepatobiliary disease (chronic acalculous cholecystitis and/or cystic duct syndrome) in patients with intermediate to high pretest probabilities of hepatobiliary illness. (Coby Younger et al, Journal of Nuclear Medicine 32:1695, 1991). Electronically Signed: Giorgio Butler, at 22:38 EDT ,
== END | disposition home or self-care (01) ==
LOC: NM 09:47
PROVIDERS: PCP Family Medicine; Referring Provider Family Medicine; Visit Provider Family Medicine
DX: K80.20 Calculus of gallbladder without cholecystitis without obstruction (principal)
CPT/HCPCS: 78227; A9537; J2805

== ENCOUNTER → 2023-04-19 | Outpatient (CLI) | payer MEDICAID, SELFPAY ==
[2023-04-19 11:16] LABS: AST(SGOT) 41 U/L (15-37); Alanine Aminotransfer ALT/SGPT 71 U/L (13-56); Albumin, Serum 3.8 g/dL (3.2-5.0); Alkaline Phosphatase 102 U/L (45-117); Anion Gap 1 (5-15); BUN 11 mg/dL (7-18); BUN/Creat Ratio 14.9 RATIO (10-20); Calcium,Total 9.3 mg/dL (8.5-10.1); Chloride 109 mmol/L (98-107); Creatinine, Serum 0.74 mg/dL (0.55-1.02); EST Glomerular Filtration Rate 86 mL/min (>60); Est Glom Filt Rate - Afr Amer 104 mL/min (>60); Globulin 3.9 g/dL (2.2-4.2); Glucose 93 mg/dL (74-106); Protein, Total 7.7 g/dL (6.4-8.2); Sodium Level 138 mmol/L (136-145)
== END | disposition home or self-care (01) ==
PROVIDERS: PCP Family Medicine; Referring Provider Physician Assistant; Visit Provider Physician Assistant
DX: K82.8 Other specified diseases of gallbladder (principal)
CPT/HCPCS: 36415; 80053

== ENCOUNTER 2023-04-24 05:55 | Day surgery (SDC) | payer MEDICAID, SELFPAY ==
[2023-04-24] VITALS (8 sets, daily range): BP systolic 134–154; BP diastolic 63–86; PULSE 63–101; RESP 14–18; TEMP 36.2–36.7; O2SAT 97–100; BMI 29.9
--- NOTE | 2023-04-24 | GALL_PTH ---
PATIENT: YOMI MCGRAW [place] [facility] [place][id number] AGE/SX: 57/F ROOM: RE04/24/[address]: Dr. Steph Arriaga MD : 1965 BED: DIS: 04/24/2023 SPEC #: [id number] RECD: 04/24/23 12:30 STATUS: MONICA REFelicia #: [id number] RADHA: 04/24/23 00:[address]: Steph Arriaga DEPT: SURGICAL PATHOLOGY RECD BY: Iron Mata ENTERED: 04/24/23 12:31 SP TYPE: BENJIE OROPEZA DR: Dr. Kwan Lundberg MD Tissues: Gallbladder, NOS Procedures: Surgery Specimen Level III HEADER OPERATION: Laparoscopic cholecystectomy with IOC PRE-OP DIAGNOSIS: Cholelithiasis, epigastric abdominal pain, dyskinesia of gallbladder TISSUE SUBMITTED: Gallbladder MICROSCOPIC DIAGNOSIS Gallbladder, cholecystectomy: Mild chronic ulcerated cholecystitis and cholelithiasis. SJ:prabhakar 04/25/2023 MICROSCOPIC DESCRIPTION Slides are reviewed. GROSS DESCRIPTION Received is one container labeled with the patient's name and designated gallbladder. The specimen consists of a previously, partially opened gallbladder measuring 8.0 cm in length and 3.0 cm in diameter. The external surface is pink-lott, smooth and glistening for the most part. Focally it is granular, hemorrhagic and contains cautery artifact. The gallbladder contains a small amount of green-yellow mucoid bile. Present in the gallbladder and also in the container are multiple multifaceted greenish-brown to black stones measuring in aggregate 6.5 x 6.0 x 3.0 cm and 0.1 to 3.0 cm in greatest dimension. The mucosa is bile-stained and without any mass lesions. The gallbladder wall measures up to 0.2 cm in thickness. Night Supervisor sections from the gallbladder and the cystic duct are submitted in one cassette. / TANNER:prabhakar 04/24/2023 TC:3 CPT: 70580
--- NOTE | 2023-04-24 05:59 | EKG12_ITS ---
Test Reason : PRE OP Blood Pressure : / mmHG Vent. Rate : 062 BPM Atrial Rate : 062 BPM P-R Int : 166 ms QRS Dur : 096 ms QT Int : 406 ms P-R-T Axes : 019 009 029 degrees QTc Int : 412 ms Normal sinus rhythm Normal ECG When compared with ECG of 26-OCT-2008 06:32, MANUAL COMPARISON REQUIRED, DATA IS UNCONFIRMED Confirmed by MONICA MONTGOMERY, JENSEN ([id number]), script editor RAMON DODSON ([id number]) on 05/29/2023 1:13:50 PM Referred By: Kwan Lundberg Confirmed By:JENSEN ANDERSON MD
[2023-04-24] MEDS: Lactated Ringers 1,000 ML 15 ML IV ×2 (06:44→10:15)
--- NOTE | 2023-04-24 06:59 | HP.PCM_ITS ---
History and Physical Date of Admission: 04/24/23 Date of Service: 04/19/23 MR#: [id number] Acct: [id number] Name: YOMI MCGRAW Rep #: [id number] : 1965 Provider: Dr. Steph Arriaga MD Age/Sex: 57/F Location: [facility] Status: Signed Intake Vital Signs 01/19/2211:43 04/19/2309:59 Height 5 ft 5 in 5 ft 5 in Weight: 181 lb BMI 30.1 BP 116/75 Blood Pressure Location Rt brachial Position Sitting Respiration 17 Pulse 71 Pulse Source Monitor Temp 97.4 F L Temp Source Temporal Pulse Oximetry (%) 97 Oxygen Delivery Method room air Intake Visit Reasons: ABNORMAL HIDA Chief Complaint: abnormal hida Is patient in pain?: No Allergies amoxicillin Allergy (Verified 04/19/23 10:00) Itching Medications multivitamin 1 tab PO DAILY 09/24/21 [History Confirmed 04/19/23] levetiracetam 500 mg tablet (Keppra) 500 mg PO BID 04/19/23 [History Confirmed 04/19/23] omeprazole 40 mg capsule,delayed release 40 mg PO DAILY #30 caps 04/19/23 [Rx Confirmed 04/19/23] PFSH Medical History (Updated 04/19/23 @ 10:[address] Steph Arriaga MD) Glioma of brain Surgical History (Updated 04/19/23 @ 10:[address] Steph Arriaga MD) History of craniotomy S/P laparoscopy Family History (Updated 04/19/23 @ 09:56 by Camila Astorga) Mother Hypertension Thyroid disorderBrother Cancer bladderFather Cancer lung Social History (Updated 04/19/23 @ 09:59 by Camila Astorga) Smoking Status: Former smoker alcohol intake: never HPI HPI HPI: 57-year-old female presents due to gallstones right upper quadrant discomfort. Patient states she had an ultrasound including clinic which did show gallstones wall was normal at 2 mm no pericholecystic fluid and common bile duct was 4 mm per ultrasound report unable to see images as from outside hospital. Patient also had slightly elevated AST and ALTs this had the ultrasound done at that time?late February. Patient did see Dr. Rodas who recommend removing the gallbladder however patient was not as sure and contact her PCP and they had a HIDA scan the HIDA scan does show less than 5% ejection fraction. Patient's pain is described as a discomfort in the right upper quadrant area but it can happen with just turning or occasionally after eating patient also has reflux that she gets maybe 3 to 4 days a week of the esophagus takes Tums and that is resolved within 5 to 10 minutes. Patient states the abdominal discomfort has been going off and on for about 2 months. Patient finished her chemotherapy last June for glioma of the brain status postcraniotomy in September 2021. ROS General General: Yes weight change; No appetite, fatigue, colon cancer, breast cancer or weakness HEENT HEENT: No difficulty swallowing, eye injury, eye surgery, swollen glands or hoarseness Endo Endocrine: No thyroid disease, diabetes mellitus, thyroid cancer, Hair loss, heat intolerance or cold intolerance Skin Skin: Yes changing moles; No rash Musc Musculoskeletal: No back problems, arthritis, rheumatoid arthritis, gout or joint pain Cardio Cardiovascular: No murmur, pacemaker, heart disease, atrial fibrillation, high blood pressure, heart attack, heart stent, palpitations, shortness of breat with exertion or chest pain Psych Psychiatric: Yes anxiety; No depression or hearing voices Resp Respiratory: No shortness of breath, No sleep apnea, No cough, No COPD, No asthma, No emphysema and No wheezing Gastro Gastrointestinal: Yes abdominal pain, Yes nausea or vomiting, No diarrhea, Yes constipation, No blood in stool, Yes acid reflux, No hemorrhoids, No ulcers, Yes gallbladder problem and No black,tarry stools Hakan Hematologic: No blood thinners, No blood disorders, No bleeding, No anemia and No blood clots Neuro Neurologic: No system reviewed and no additional complaints, except as documented, No as per HPI, No abnormal gait, No abnormal hearing, No abnormal movements, No abnormal speech, No behavioral changes, No burning sensations, No confusion, No convulsions, No disequilibrium, No dizziness, No localized weakness, No frequent falls, No headache(s), No lack of coordination, No loss of vision, No memory loss, No numbness, No other visual disturbances, No radicular pain, No restless legs, No sensory deficit, No syncope, No tingling, No tremor(s), No weakness and No other Exam Const General: cooperative, healthy appearing, comfortable and no acute distress [facility] Head: normocephalic and atraumatic Neck Neck: supple Resp Effort & Inspection: normal respiratory effort Cardio Rate: regular rate GI Inspection: non-distended Palpation: soft, no hernias and tender in the epigastrum (Mild no peritoneal signs) Skin General: no rashes or lesions noted Neuro General: CN's II-XI intact bilaterally Extrem General: normal to inspection Psych Mental Status: mental status grossly normal Attitude: cooperative Assessment and Plan Assessment and Plan (1) Cholelithiasis: Status: Acute (2) Epigastric abdominal pain: Status: Deleted (3) Dyskinesia of gallbladder: Status: Acute (4) Abdominal pain: Status: Acute Comment: RUQ (epigastric on exam) (5) Abnormal LFTs: Status: Acute (6) GERD (gastroesophageal reflux disease): Status: Acute Orders: Orders Comprehensive Metabolic Profil Today K82.8 - Other specified diseases of gallbladder Medications: New omeprazole 40 mg PO DAILY 30 caps 0RF omeprazole 40 mg PO DAILY 30 caps 1RF Plan Due to patient's epigastric pain as well as reflux symptoms we will plan to start omeprazole the perioperative period 40 mg p.o. daily. We will plan to recheck liver functions as last ones were taken in late February. Reviewed the anatomy with the patient and discussed the procedure: laparoscopic cholecystectomy with cholangiograms, possible open. Review risks including but not limited to bleeding, infection, hernia, bile leak, retained gallstones requiring another procedure ERCP- Endoscopic Retrograde Cholangiopancreatography, injury to another organ (bile ducts, common bile duct, small bowel, etc.) and conversion to an open procedure. All questions were answered. Steph Arriaga M.D. Pager: [phone] [facility] [address] [place] [address], [address] [place] [address] Office: [phone] Coding Level of Care Code Off vis,new,level 4 Diagnoses Cholelithiasis K80.20 Epigastric abdominal pain R10.13 Dyskinesia of gallbladder K82.8 Abdominal pain R10.9 Abnormal LFTs R79.89 GERD (gastroesophageal reflux disease) K21.9 04/19/23 1041 <Electronically signed by Steph Arriaga MD> Date Steph Arriaga MD
[2023-04-24 07:01] LABS: Partial Thromboplast Time 27.2 Seconds (24.1-36.2)
[2023-04-24] MEDS: Clindamycin 900 MG/50 ML BAG 75 MG IV (09:21)
--- NOTE | 2023-04-24 09:46 | RAD_ITS ---
STUDY: INTRAOPERATIVE CHOLANGIOGRAM. REASON FOR EXAM: Female, 57 years old. Laparoscopic cholecystectomy. FLUOROSCOPY TIME (if supplied): ( 22.2 seconds ) minutes/seconds. 9.28 mGy TECHNIQUE: An intraoperative cholangiogram was performed by the surgeon. Imaging was submitted. COMPARISON: None. FINDINGS: Intrahepatic ducts are unremarkable. Filling defect is seen in the distal portion of the common bile duct just proximal to the ampulla of Vater. A retained calculus should be ruled out. No flow of contrast is seen in the duodenum. RAD/Cholangiogram/ O R,Initial IMPRESSION: Findings suggestive of a calculus in the distal portion of the common bile duct causing obstruction with no flow into the duodenum. Electronically Signed: Sergio Ramirez MD at 13:41 EDT ,
--- NOTE | 2023-04-24 09:46 | RAD_ITS ---
STUDY: INTRAOPERATIVE CHOLANGIOGRAM FOLLOWING GLUCAGON INJECTION. REASON FOR EXAM: Female, 57 years old. GLUCAGON GIVEN, FLUOROSCOPY TIME (if supplied): ( 22.2 seconds ) minutes/seconds. 9.28 mGy TECHNIQUE: An intraoperative cholangiogram was performed by the surgeon following glucagon injection. COMPARISON: None. FINDINGS: The intra and extrahepatic biliary ducts are unremarkable. There is free flow of contrast into the duodenum. RAD/Cholangiogram O.R./Subsequent IMPRESSION: Unremarkable intraoperative contrast and following glucagon injection. Electronically Signed: Sergio Ramirez MD at 13:42 EDT ,
[2023-04-24] MEDS: Bupivacaine Mpf 0.5% 30 ML VIAL (10:33)
--- NOTE | 2023-04-24 10:49 | PCM.OPRPT ---
Report of Operation Date of Procedure: 04/24/23 Pre-Operative Diagnosis: cholelithiasis, biliary dyskinesia, elevated LFTs Post-Operative Diagnosis: acute calculus cholecystitis Surgery/Procedure Performed:: Laparoscopic cholecystectomy with cholangiograms Surgeon: Steph Arriaga train brake operator: Malinda Álvarez Type of Anesthesia: General/Supplemental Anesthesiologist: Kwan Au Special Medications: Clindamycin 900 mg IV x1 Specimen's removed: Gallbladder and stones Estimated Blood Loss (mL): < 10 cc Description of Procedure: Indications: this is a 57 year-old female who developed abdominal pain/nausea/vomiting and on workup was found to have cholelithiasis, HIDA ejection fraction less than 5%, slightly elevated AST and ALT, with a normal common bile duct. Laparoscopic cholecystectomy was elected. Description procedure: The patient was placed on operating table in supine position. A timeout was completed verifying correct patient, procedure, site, position and special equipment prior to beginning procedure. General Anesthesia was induced. The abdomen was prepped and draped in usual sterile fashion. An incision was made in the natural skin line above the umbilicus. The fascia was elevated and incised. The peritoneum was elevated and incised. Entry into the peritoneum was confirmed visually and no bowel was noted in the vicinity of the incision. Lenz trocar was placed. The abdomen was insufflated with carbon dioxide to a pressure of 12-15 mmHg. Patient tolerated insufflation well. The laparoscope was then inserted and abdomen inspected. No injuries from initial trocar placement were noted. Additional trochars were then inserted in the following locations 5 mm trocar in the epigastrium and 2 more 5 mm trochars along the right costal margin. The abdomen was inspected no abnormalities were found. The table is placed in reverse Trendelenburg position with the right side up. Gallbladder was noted to be distended with a thickened wall. The dome of the gallbladder was grasped with atraumatic grasper passed through the lateral port and retracted over the dome of the liver. Infundibulum was then grasped with atraumatic grasper through the midclavicular port and retracted to the right lower quadrant. This maneuver exposed Calot's triangle. The peritoneum overlying the gallbladder infundibulum was then incised and cystic duct and artery identified and circumferentially dissected. Nagy catheter was used for cholangiograms. The cholangiogram showed good filling of the common bile duct into the duodenum with no filling defects, good filling of the right and left bile ducts as well. The cystic duct and artery were then doubly clipped and divided close to the gallbladder. The gallbladder then dissected from its peritoneal attachments by electrocautery. Hemostasis was checked and the gallbladder and contained stones were removed using the endoscopic retrieval bag through the umbilical port. The gallbladder is passed off table as specimen. The gallbladder fossa was irrigated with saline and hemostasis obtained. There is no evidence of bleeding from the gallbladder fossa or cystic artery leakage of bile from the cystic duct stump. Secondary trochars removed under direct vision. No bleeding was noted the trocar sites. The laparoscope was withdrawn and umbilical trocar removed. The abdomen was allowed to collapse. The fascia of the 12 mm trocar was closed with a [id number] 0 Vicryl suture. The skin was closed with sutures of 4-0 Monocryl and Steri-Strips. The patient was extubated. The patient tolerated procedure well and was taken to the postanesthesia care unit in stable condition. Complications None
--- NOTE | 2023-04-24 10:52 | EX.PCM.DISCH ---
Discharge Instructions Diet Discharge Diet: Light diet - advance as tolerated Activity Discharge Activity: May Not Drive (while taking narcotic pain medications.) May shower in (days): 1 Lifting Restrictions: no lifting >20 lbs x 2 wks, no strenuous exercise for 4 wks Dressing / Incision Call your doctor if your incision/area has: Continuous Slow Oozing, Sudden Increased Bleeding, Increased Pain/ Swelling, Increased Redness, Foul Smelling Discharge and Swelling at the incision site Call your doctor if you observe: Fever of 101 or Higher Remove Dressing in: 2 days Cleanse incision/area with: Soap & Water Additional Dressing/Incision Instructions:: Steri-Strips will fall off in 7 to 10 days, if they do not fall off okay to remove after 10 days. Follow Up Care Please Follow Up With: Steph Arriaga MD When: Call the office for a follow-up appointment 2 weeks; after 5 PM and on the weekends call [phone] with any concerns. Test Results: Test results from this visit will be discussed in further detail at your follow-up appointment, if applicable. Discharge Plan Admission Attending Provider: Steph Arriaga Primary Care Provider: Kwan Lundberg Discharge Orders/Prescriptions Prescriptions: New oxycodone-acetaminophen 5-325 mg tablet 1 - 2 tab PO Q6H PRN (Reason: pain) 3 Days Qty: 10 0RF Continued levetiracetam [Keppra] 500 mg tablet 500 mg PO BID omeprazole 40 mg capsule,delayed release(DR/EC) 40 mg PO DAILY Qty: 30 1RF multivitamin Tablet 1 tab PO DAILY Other Ambulatory Orders: 12 Lead EKG (Routine) Timeframe: [id number] Facility: [facility] - Location: [place] Ordered By: Dr. Kwan Au Referrals / Follow Up: Kwan Lundberg MD [Primary Care Provider] - Disposition Disposition (needs filled in before D/C Order can be placed): Home, Self Care
== END 2023-04-24 14:06 | disposition home or self-care (01) ==
LOC: SDC 05:57 → AC 05:57
PROVIDERS: Anesthesiology; PCP Family Medicine; Referring Provider Family Medicine; Visit Provider Surgery
PROC: (CPT 47610; principal; 2023-04-24 07:10)
DX: K80.00 Calculus of gallbladder with acute cholecystitis without obstruction (principal); K82.8 Other specified diseases of gallbladder; Z87.891 Personal history of nicotine dependence; K21.9 Gastro-esophageal reflux disease without esophagitis; R79.89 Other specified abnormal findings of blood chemistry; F12.90 Cannabis use, unspecified, uncomplicated; R10.13 Epigastric pain
CPT/HCPCS: 47563; 00790; 74300; 74301; 76000; 85730; 88304; 93005; J7120; J1610; J2405

== ENCOUNTER → 2023-09-12 | Outpatient (CLI) | payer MEDICAID, SELFPAY ==
--- NOTE | 2023-09-12 07:54 | VDLE_ITS ---
Reason For Study: Bilateral leg swelling RIGHT LEFT GSV is normal. GSV is normal. CFV appears patent, visualized with color CFV is compressible, spontaneous, phasic, only, patient unable to tolerate competent, and demonstrates normal compression. Normal venous flow. augmentation. FV is compressible, spontaneous, phasic, FV is compressible, spontaneous, phasic, competent and demonstrates normal competent and demonstrates normal augmentation. augmentation. POP V is compressible, spontaneous, phasic, POP V is compressible, spontaneous, phasic, competent and demonstrates normal competent and demonstrates normal augmentation. augmentation. T/P Trunk is compressible. T/P Trunk is compressible. PTV is compressible. PTV is compressible. RT PerV is compressible. Acute deep vein thrombosis is noted in the Procedure Gastrocnemius V and Peroneal V. It is dilated This is a venous duplex using B-mode, color and NONCOMPRESSIBLE. flow and spectral Doppler. Exam performed in department. A preliminary report was called and/or faxed to Lucinda BROOKS. VL/Venous Duplex US - Vinicius Extrem Interpretation Summary Acute deep vein thrombosis is noted in the left gastrocnemius vein and peroneal vein Deep veins of the right lower extremity are patent and compressible segmentally . There is no evidence of right lower extremity deep vein thrombosis. The bilateral great sap henous veins appear patent and compressible segmentally. Ordering Physician: EFRAIN MARIE Referring Physician: Kwan Lundberg MD Performed By: Pati Vuong RVT
--- NOTE | 2023-09-12 07:55 | VDUE_ITS ---
Reason For Study: Bilateral arm swelling Right Proximal Left Proximal Right jugular vein is spontaneous, widely Left jugular vein is spontaneous, widely patent, phasic, with no intraluminal patent, phasic, with no intraluminal echogenicity noted. echogenicity noted. Right subclavian vein is spontaneous, widely Left subclavian vein is spontaneous, widely patent, phasic, with no intraluminal patent, phasic, with no intraluminal echogenicity noted. echogenicity noted. Right Lower Arm Left Arm Right radial vein is compressible. Acute deep vein thrombosis is noted in the Right ulnar vein is compressible. left Axillary vein distal and Brachial vein. Right Arm Acute superficial vein thrombosis is noted in Right axillary vein is spontaneous, patent, the left Basilic vein from origin to phasic, competent, compressible and antecube. demonstrates augmentation. Left cephalic vein is compressible. Right brachial vein is compressible. Left Lower Arm Right cephalic vein is compressible. Left radial vein is compressible. Right basilic vein is compressible. Left ulnar vein is compressible. Patient Safety Preliminary given to Lucinda BROOKS. VL/Venous Duplex US - Vinicius Extrem Interpretation Summary Acute deep vein thrombosis noted in the left axillary, brachial veins Acute superficial vein thrombosis noted in the left basilic vein. Deep veins of the right upper extremity are patent and compressible segmentally . There is no evidence of deep vein thrombosis. Superficial veins of the right upper extremity are patent and compressible segm entally. There is no evidence of superficial vein thrombosis. Ordering Physician: EFRAIN MARIE Referring Physician: Kwan Lundberg MD Performed By: Pati Vuong RVT ???
--- NOTE | 2023-09-12 13:59 | CT_ITS ---
STUDY: CTA CHEST REASON FOR EXAM: Female, 57 years old. POSITIVE DVT''S AND TACHYCARDIA RADIATION DOSAGE (If Supplied By Facility): CTDIvol = ( 12.65 ) mGy, DLP = ( 482.40 ) mGycm TECHNIQUE: The examination was performed with the intravenous administration of IV 100mL Isovue-370. Post-processing of the angiographic images was performed, with multiplanar reformation and 3D reconstruction. Individualized dose optimization techniques were used for this CT. COMPARISON: None. FINDINGS: Diffuse enlargement of both lobes of the thyroid gland with heterogeneous density. There is substernal extension of the right lobe of the thyroid. Normal enhancement of the main pulmonary artery and right and left pulmonary arteries. Normal enhancement of the bilateral peripheral pulmonary arteries. There is no demonstrated pulmonary embolism. Normal thoracic aorta and visualized great vessels. There is no demonstrated aortic dissection. Normal heart and pericardium. There are small mediastinal lymph nodes, which are within normal size limits, and with normal morphology. Normal hilar regions. Normal visualized trachea and bronchi. The lungs are well expanded. Normal pulmonary parenchyma. Normal pleura. Normal chest wall structures. There are degenerative changes of thoracic spine. Diffuse fatty infiltration of the liver. Punctate nonobstructive calculus in the upper pole calyx of the left kidney. CT/CTA Chest W/WO Contrast IMPRESSION: Diffuse enlargement of the thyroid gland with the substernal extension of the right lobe of the thyroid with heterogeneous appearance. No evidence of pulmonary embolism. Electronically Signed: Sergio Ramirez MD at 14:50 EST ,
== END | disposition home or self-care (01) ==
PROVIDERS: PCP Family Medicine
DX: M79.89 Other specified soft tissue disorders (principal); I82.402 Acute embolism and thrombosis of unspecified deep veins of left lower extremity; I82.622 Acute embolism and thrombosis of deep veins of left upper extremity; R00.0 Tachycardia, unspecified
CPT/HCPCS: 71275; 93970; Q9967

== ENCOUNTER → 2023-09-13 | Outpatient (CLI) | payer MEDICAID, SELFPAY ==
[2023-09-13 15:59] LABS: Color, Urine Yellow (Yellow); Glucose, Dipstick Normal (Normal); Ketone-Dipstick Negative (Negative); Leukocyte Esterase-Dipstick Negative /ul (Negative); Nitrite-Dipstick Negative (Negative); Occult Blood-Urine 10 /ul (Negative); Protein-Dipstick Negative (Negative); Specific Gravity, Urine 1.015 (1.002-1.030); Urine Bilirubin Dipstick Negative (Negative); Urine Clarity Clear (Clear); Urine Urobilinogen Normal (Normal); Urine pH 6.5 (5.0 - 8.0)
[2023-09-13 16:31] LABS: Absolute Lymphocyte Count 0.69 X10^3/uL (0.83-4.51); Absolute Neutrophil Count 7.3 X10^3/uL (2.0-7.7); Basophil# 0.04 X10^3/uL; Basophil% 0.5 % (0-1); Eosinophils% 1.1 % (0-5); Hematocrit 38.1 % (37-47); Hemoglobin 12.2 g/dL (12.0-15.0); Lymphocyte # 0.69 X10^3/ul (0.83-4.51); Lymphocyte % 7.8 % (19-41); Mean Corpuscular Hgb 31.2 pg (27.0-32.0); Mean Corpuscular Volume 97.4 fL (81-99); Mean Platelet Vol. 9.3 fl (6.2-12.0); Monocyte# 0.54 X10^3/uL; Monocyte% 6.1 % (0-10); NRBC Flagged by Analyzer 0 % (0-5); Neutrophil # 7.27 X10^3/uL (2.7-7.7); Neutrophil % 82.6 % (47-70); Platelet Count 236 K/mm3 (150-450); RBC Distribution Width CV 14.7 % (11.6-14.6); RBC Distribution Width SD 52.7 fl (35.1-43.9); Red Blood Count 3.91 M/mm3 (4.2-5.4); White Blood Count 8.8 K/mm3 (4.4-11.0)
[2023-09-13 16:38] LABS: ALB/GLOB Ratio 0.8 RATIO (0.9-2.4); AST(SGOT) 57 U/L (15-37); Alanine Aminotransfer ALT/SGPT 119 U/L (13-56); Albumin, Serum 3.1 g/dL (3.2-5.0); Alkaline Phosphatase 71 U/L (45-117); Anion Gap 6 (5-15); BUN 21 mg/dL (7-18); BUN/Creat Ratio 25.4 RATIO (10-20); Calcium,Total 9.7 mg/dL (8.5-10.1); Chloride 104 mmol/L (98-107); Creatinine, Serum 0.83 mg/dL (0.55-1.02); EST Glomerular Filtration Rate 75 mL/min (>60); Est Glom Filt Rate - Afr Amer 91 mL/min (>60); Globulin 3.8 g/dL (2.2-4.2); Glucose 87 mg/dL (74-106); Potassium 4.2 mmol/L (3.5-5.1); Protein, Total 6.9 g/dL (6.4-8.2); Sodium Level 137 mmol/L (136-145); Thyroid Stim Hormone (TSH) 1.58 uIU/mL (0.358-3.74)
[2023-09-13 16:40] LABS: Hemoglobin A1c 5.7 % (3.8-5.6)
[2023-09-13 17:36] LABS: Osmolality, Serum 294 mOsm/KG (275-295); Osmolality, Urine 684 mOsm/KG
== END | disposition home or self-care (01) ==
LOC: MTLAB 12:44
PROVIDERS: PCP Family Medicine; Referring Provider Family Medicine; Visit Provider Family Medicine
DX: R60.9 Edema, unspecified (principal); I82.409 Acute embolism and thrombosis of unspecified deep veins of unspecified lower extremity; R35.0 Frequency of micturition
CPT/HCPCS: 36415; 80053; 81002; 83036; 83930; 83935; 84443; 85025; 87086; 87088

== ENCOUNTER 2023-10-12 14:00 | Outpatient (RCR) | payer MEDICAID, SELFPAY ==
--- NOTE | 2023-09-25 12:00 | HP.PTEVAL ---
Patient's Visit Information Visit Information Visit Information: YOMI MCGRAW is a 57 year old F referred to Physical Therapy by EFRAIN MARIE with a diagnosis of glioblastoma, L sided weakness.. Date of Evaluation: 09/25/23 Physical Therapist: Kwan Saenz, CORINAT, OCS, CSCS Visit Plan Frequency: 3x /Week Duration: 4-6 Weeks Plan: 3x/week for 4-6 weeks for 1. motor control and coordination exercises/proprioception L LE. 2. strength L LE and general whole body strengthening to HEP with pics. 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 L sided numbness and weakness and poor motor control since July. Radiation in 2021 and these are the after effects. Prior to July was doing much better. used to walk 2 miles over at the [facility] last summer. Worsening mobility and balance since the weather changed. Started to feel wobbly. A couple falls without injury as she can lose her balance when turning. Runs into doorframes often and cannot feel L foot. Oncologist sent her to see if she could get control on L side of foot. Walking was main exercise. Has had biopsy a month ago to make sure no new tumor. It is necrosis. Sleep is OK. L side is not painful but feels weird to the touch. bruises on arm from running into things. Is L handed. learned to eat and trying to write R handed. Basic ADLs: dressing self sometime but needs help with socks and tying L shoe. L hand limits her. Some days better than others. Has 3 wh walker and walks when she can . Not sure what makes for a bad day. Bathroom I. Shower is supervised but not helped. Frustrating some days. Has blood clot in arm and leg and has compression sleeves and leggings, hard to get on. Hobbies: makes cards which is now hard. Uses 3 wh walker at home. Bedroom main fllor now, 2 steps to enter with railing. Objective Objective: L sided neglectr adn running into door frame until cued , walks into PT hand in hand with , short slow steps and runs into objects on her L. Transtion to and fro stand I with UE chair. Walks with rollaotro needing cues for L hand on walker and to stay inside vs kick L walker leg but does well with rollator with increased step length and focus on staying to right of objects. Pt is A&O x3 L arm is bruised from hitting things and patient will see OT after PT today. balance is poor and unable to FGA today without AD. Requires walker and prefers rollator which is approrpiate. R UE and LE are WFL strength michel at 4/5 adn ROM michel and good motor control L side is a different story. Poor motor control with L UE adn LE, reaching for my hand with L often misses and takes extra time. Reciprcoal tapping of hand and foot shows obvious L sided deficits. Slow movement on L. Strength in L LE is 3/5 and slow but able to move at ankles and knee and hips in all directions, just very weak. reflexes 2/3 L patella adn achilles and 1/3 R. Sensation to gross light touch at deficit maximally unable to feel touch in L quad and HS down to foot, poor proprioception to nil. Arm is very similar in sensation on l side. Felxibility HS and quad min deficits L at -20 90/90 test. Balance/Special Test Scores Quick DASH Score: 61.3625 Goals Goal 1:: Tolerate FGA without AD and score 20 Goal Time Frame: 4-6 Weeks Goal 2:: I appropriate HEP for balance, strength adn general activity Goal Time Frame: 4-6 Weeks Goal 3:: Walk with rollator I in community setting Goal Time Frame: 4-6 Weeks Goal 4:: steps with one rail reciprocal I. Goal Time Frame: 4-6 Weeks Rehabilitation Potential Physical Therapy Diagnosis: weakness and proprioceptive/motor control deficits on l side effecting function. Rehabilitation Potential: Fair Anticipated Interventions Patient/Client Instruction: Educate patient on: Condition and Plan of Care For the Purpose of:: To decrease pain, To increase ROM, To improve nutrient delivery to tissue, To improve muscle performance and motor function, To increase tolerance to activity/condition/position and To improve ability of physical actions for home/community/work/leisure Therapeutic Exercise to Include: Strength training, Balance training, Postural training, Flexibilty training and Gait and locomotor training For the Purpose of:: To decrease pain, To increase ROM, To improve nutrient delivery to tissue, To improve muscle performance and motor function, To increase tolerance to activity/condition/position and To improve ability of physical actions for home/community/work/leisure Text: Thank you for the opportunity to evaluate your patient. For Medicare and Medicare HMO plans, please review the plan of care and approve it. It will need to be FAXED BACK to us at [phone] for Medicare purposes. For Medicare only, by signing this I certify the plan of care. Please let me know if there are questions or concerns regarding this plan of care. Physician Signature: Date:
--- NOTE | 2023-09-26 07:19 | HP.OTEVAL_ITS ---
Patient's Visit Information Visit Information Visit Information: YOMI MCGRAW is a 57 year old F, referred to Occupational Therapy by EFRAIN MARIE, with a diagnosis of left UE weakness/. Date of Evaluation: 09/25/23 Occupational Therapist: Angely Hopkins, DAVION/Nichelle, CHT Subjective Subjective: This 57 year old female was seen for OT eval - pt states she was dx with glioblastoma 2years ago with craniotomy. necrosis from radiation ( 30 to right side) pt states left side about summer was noticing changes in sensation- pt states she had biopsy to confirm the Narcosis- pt states she did have cold laser therapy - thought she noticed increase sensation of left digits- Pt was dx with blood clot in left biceps region- on blood thinner for blood clot. pt and pts family states she was IND three months ago. ADLs Comments: pt lives in a two story home with first floor set-up. pt states she has a two steps with handrails. pt has grab bars in walk in shower has a seat- but is using shower chair- pt states prior to last three moths she was ind. with eating: pt states now her left hand is pushing her dishes a way. pt states three months ago she was driving IND. pt has as roll forming supervisor for bathing and dressing is now helping 75% and prior to three months ago was helping only at 25% Pain left UE: Current Pain Intensity: 1 Pain Intensity Range: 0 and 3 ROM Shoulder: right WNL left ROM Comments: pt demo left UE slower motor control with compensation Strength Shoulder: R 5/5 left 4-/5 Elbow: R 5/5 left 4-/5 Airline Operations Agent: right 75# left 55# Lateral Pinch: right 19# left 16# Tripod Pinch: right 20# left20# Strength Comments: pt demo with left UB weakness Sensation Sensation Comments: left side of body tingling Movement Movement Comments: noted involuntary movement in flexion pattern Visual/Perceptual Skills Visual Field Cut: Yes Left Neglect: Yes Cognitive Skills Follows Directions: Yes Attention Attention: Normal Nine Hole Peg Right: 25.52 sec Left: unable Comments: vision increasing difficulty with task In-Hand Manipulation Finger to Palm Translation: Normal - Right and Unable - Left Palm to Finger Translation: Normal - Right and Unable - Left Shift: Normal - Right and Unable - Left Rotation: Normal - Right and Unable - Left Quick DASH-Disab of Arm,Shoulder& Hand Quick DASH Score: 81.8175 Goals Goal:: pt will demo a increase in LUE strength demo the ability to use left UE to support self while placing object in at shoulder and various heights to increase pts ind. with ADLs by d/c Goal:: pt will demo a increase in left UE motor control for a fluid movement pattern when reaching/ grasping a variety of different objects to increase ind with IADsl by d/c Goal:: pt will demo the ability to grain picker small, med and large objects with left UE and place a targeted area with 90% accuracy to increase pts ind. with ADLs by d.c pt will demo the ability to use left hand for fine motor skills as picking up coins and placement without dropping by d.c Goal:: pt will report a reduction in left side tingling by 50% by d.c Goal:: pt will demo compensatory paula. to decrease her visual field (left neglect ) to increase the ability to see what is in front of her 95% accuracy. pt and family will report a increase in pts safe functional ambulation within her home with a 75% reduction in running into joyce/counters/tables with her left side by d.c Goal:: pt and family will report pt dressing at 90% accuracy without putting clothes on backwards or leaving left UE out by d/c Goal:: With compensatory paula. pt will demo the ability to safely scan her environment to ensure she is not at risk for fall, or running into objects by d/c Rehabilitation General Assessment: pt demo with significate change in her left side motor control, weakness and left neglect. This has decreased her safe functional ambulation within her home as well as out in public. Pt demo need for skilled OT services 3x week for 8 weeks to increase left UE motor control, ed,pt on visual field cut and work on modifications to improve pts safe functional mobility within her home. pt and pts family demo understanding and agrees to POC. Rehabilitation Potential: Good Anticipated Interventions Anticipated Interventions: A/AAROM/PROM, Strengthening, Joint Protection/Energy Conservation, Ergonomic Education, Fine Motor Coord/[place], Neuro Reeducation, Visual/Perceptual Skills, Education re assistive Equipment, Education re Diagnosis, Caregiver Training and Home Program Visit Plan Frequency: 3x /Week Duration: 6 Weeks TEXT: Thank you for the opportunity to evaluate your patient. For Medicare and Medicare HMO plans, please review the plan of care and approve it. It will need to be FAXED BACK to us at [phone] for Medicare purposes. Please let me know if there are questions or concerns regarding this plan of care. Physician Signature: Date:
--- NOTE | 2023-11-09 08:06 | HP.OTDCSUM ---
Discharge Summary D/C Summary: It has been my pleasure to treat YOMI MCGRAW under orders from EFRAIN MAREI, for the diagnosis of left UE weakness/ for a total of 5 visit(s). Please see the following information for a summary of their discharge status. Goals Patient Goals: Regain Mobility, Regain Strength, Improve Fine Motor Skills, Use Hand/Wrist/Arm Normally Again, Decrease Tingling/Numbness, Be More Independent in ADLS and Improve Sitting Balance Goal:: pt will demo a increase in LUE strength demo the ability to use left UE to support self while placing object in at shoulder and various heights to increase pts ind. with ADLs by d/c Goal:: pt will demo a increase in left UE motor control for a fluid movement pattern when reaching/ grasping a variety of different objects to increase ind with IADsl by d/c Goal:: pt will demo the ability to engraving supervisor small, med and large objects with left UE and place a targeted area with 90% accuracy to increase pts ind. with ADLs by d.c pt will demo the ability to use left hand for fine motor skills as picking up coins and placement without dropping by d.c Goal:: pt will report a reduction in left side tingling by 50% by d.c Goal:: pt will demo compensatory paula. to decrease her visual field (left neglect) to increase the ability to see what is in front of her 95% accuracy. pt and family will report a increase in pts safe functional ambulation within her home with a 75% reduction in running into joyce/counters/tables with her left side by d.c Goal:: pt and family will report pt dressing at 90% accuracy without putting clothes on backwards or leaving left UE out by d/c Goal:: With compensatory paula. pt will demo the ability to safely scan her environment to ensure she is not at risk for fall, or running into objects by d/c Plan Plan: D/C pt due to oncology request D/C Information d/c sentence: If there are questions or concerns regarding this patient's occupational therapy, please fell free to call me at [phone]. Thank you for the referral of this patient. Sincerely, Angely Hopkins, OTR/L, CHT
== END 2023-10-12 19:00 | disposition home or self-care (01) ==
LOC: OT 14:00
PROVIDERS: PCP Family Medicine
DX: C71.9 Malignant neoplasm of brain, unspecified (principal)
CPT/HCPCS: 97110; 97112; 97163; 97166; 97530

== ENCOUNTER 2023-10-13 15:55 | Emergency (ER) | payer MEDICAID, SELFPAY ==
[2023-10-13 15:57] VITALS: BP 154/74; PULSE 82; RESP 14; TEMP 36.8; O2SAT 97
[2023-10-13 16:00] VITALS: BMI 33.3
--- NOTE | 2023-10-13 16:07 | EDS_ITS ---
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 Today, the patient was going down a ramp, the patient lost her balance and the weight belt was pulled onto her right side, causing her to have significant pain. Patient has worsening pain with movement, and they are here for evaluation. Patient denies any chest pain, nausea or vomiting. PFSH <CLAUDIA Gan - Last Filed: 10/13/23 18:34> PFSH Medical History (Updated 10/13/23 @ 18:34 by CLAUDIA Gan) Abdominal pain Anxiety Cancer Former smoker Gastric reflux Glioma of brain History of rheumatic fever History of stress test Marijuana use Seizures Wears contact lenses Wears glasses Home Medications multivitamin 1 tab PO DAILY 09/24/21 [History Last Taken Unknown] levetiracetam 500 mg tablet (Keppra) 500 mg PO BID 04/19/23 [History Last Taken 04/24/23 05:45] omeprazole 40 mg capsule,delayed release 40 mg PO DAILY #30 caps 04/19/23 [Rx Last Taken Unknown] oxycodone-acetaminophen 5 mg-325 mg tablet 1 - 2 tab PO Q6H PRN pain 3 days #10 tabs 04/24/23 [Rx Last Taken Unknown] lacosamide 200 mg tablet (Vimpat) 200 mg PO DAILY 05/09/23 [History Last Taken Unknown] Allergy/AdvReac Type Severity Reaction Status Date / Time amoxicillin Allergy Itching Verified 10/13/23 15:56 Family History (Updated 04/19/23 @ 09:56 by Camila Astorga) Mother Hypertension Thyroid disorder Brother Cancer bladder Father Cancer lung Surgical History History of craniotomy S/P laparoscopy Status post cholecystectomy Social History (Updated 04/19/23 @ 09:59 by Camila Astorga) Smoking Status: Former smoker alcohol intake: never ROS <CLAUDIA Gan - Last Filed: 10/13/23 18:34> ROS ED ROS Narrative Constitutional: Negative for fever, chills, weight loss, weakness Eyes: Negative for vision loss, vision change, double vision ENT: Negative for any sore throat, ear pain, congestion Cardiovascular: Negative for any chest pain, tightness, palpitations Respiratory: Negative for any cough, sputum production, hemoptysis, dyspnea, dyspnea on exertion, orthopnea Gastrointestinal: Negative for any abdominal pain, nausea, vomiting, diarrhea, constipation, blood in stool, blood in vomit : Negative for any urinary frequency, dysuria, retention, blood in urine Muscle skeletal: Negative for any neck pain, back pain. Positive for a right side flank pain, right-sided rib pain Neurological: Negative for any headache, syncope, dizziness Skin: Negative for any rashes, itching, abrasions, lacerations Psychiatric: Negative for any depression, anxiety, stress, suicidal ideation, homicidal ideation Hematologic: Negative for any excessive bruising, easy bleeding EXAM <Tej Smith NP-Christina - Last Filed: 10/13/23 18:34> Physical Exam Narrative Exam Narrative: Vital signs reviewed. HEET: Head normocephalic atraumatic, TMs clear bilaterally. Posterior pharynx is clear, moist mucous membranes. Nares clear bilaterally. Neck: Supple with no lymphadenopathy or tenderness. No signs of meningismus. Cardiac: Regular rate and rhythm no murmurs gallops or rubs, equal peripheral pulses bilaterally. Respiratory: Lungs clear to auscultation bilaterally. Positive for right side anterior lower chest tenderness, there is no crepitus. There is no evidence of any herpetic lesions, patient has pain to her right flank area as well. Abdomen: Soft, nontender, nondistended. No abdominal bruit or pulsatile masses. No hepatosplenomegaly no peritoneal signs, active bowel sounds in all quadrants. Extremities: No peripheral edema, no signs of gross trauma or deformity. Active full range of motion of all extremities. Neuro: Cranial nerves II through XII intact, no focal neurological deficits. Skin: Clean dry and intact with no rash, purpura, petechiae, vesicles or pustules. Backs/flank: No CVA tenderness, no midline spinal tenderness, no deformity. Psych: Normal mood and affect. No SI, HI or acute psychosis. Const Vital Signs: 10/13/23 15:57 10/13/23 16:48 Temperature 98.2 F Temperature Source Temporal Pulse Rate 82 Respiratory Rate 14 Respiratory Effort Normal Non-Labored Blood Pressure 154/74 H Blood Pressure Mean 100 Pulse Ox 97 Oxygen Delivery Method Room Air <Dr. Boy Kevin MD - Last Filed: 10/13/23 18:25> Physical Exam Const Vital Signs: 10/13/23 15:57 10/13/23 16:48 Temperature 98.2 F Temperature Source Temporal Pulse Rate 82 Respiratory Rate 14 Respiratory Effort Normal Non-Labored Blood Pressure 154/74 H Blood Pressure Mean 100 Pulse Ox 97 Oxygen Delivery Method Room Air MDM <CLAUDIA Gan - Last Filed: 10/13/23 18:34> [facility] Lab Data Labs: Laboratory Results - last 24 hr 10/13/23 16:55 Sodium 141 Potassium 4.0 Chloride 113 H Carbon Dioxide 23.0 Anion Gap 5 BUN 19 H Creatinine 0.69 Estim Creat Clear Calc 98.83 Est GFR (MDRD) Af Amer 112 Est GFR (MDRD) Non-Af 93 BUN/Creatinine Ratio 27.6 H Glucose 145 H Calcium 9.0 Radiography Diagnostic Testing: Clinical Impression(s) from Imaging Studies Abdomen/Pelvis CT 10/13/23 16:39 IMPRESSION: Right renal cysts. Mild colonic diverticulosis. Electronically Signed: Nitin Mercer DO at 18:10 EST Reading Location ID and State: [facility] / [place] Tel [phone], Service support , Treatment and Re-Evaluation :: Differential diagnosis includes however is not limited to: Rib fracture, patient choledocholithiasis, abdominal strain, contusion, hemoperitoneum Patient appears generally well, patient appears nontoxic, vital signs are stable. Present to the emerged part with right-sided rib, right abdominal pain. The family thinks it is from holding the weight belt on that area when she ambulates and when she falls. When patient is resting, patient is in no distress. Patient's BMP was unremarkable. Patient's chest x-ray inter by ER physician shows no radiographic evidence of acute cardiopulmonary disease. Patient CT scan showed renal cyst, mild colonic diverticulosis, no acute process. I spoke with the patient and her at length. At this time, is to be diagnosed with muscle skeletal strain. Contusion. Patient instructed to follow-up outpatient. They will try to perform different maneuvers to get out of bed and to move secondary to worsening pain. Instructed return for any worsening symptoms. Stable for discharge <Dr. Boy Kevin MD - Last Filed: 10/13/23 18:25> [facility] MDM Narrative Medical decision making narrative: I have personally performed a face to face assessment of the patient and have reviewed the CLIFFORD Note. I performed a substantive portion of the visit including all aspects of the following. My bustamante findings include: History is 57-year-old female history of prior glioblastoma with resection. Recently over the last several months has developed a left-sided weakness to her left upper and lower extremity. When she walks and cannot have a safety belt on her today she started to fall and grabbed a safety harness and injuring her right lower rib cage and right flank and upper abdomen. No other injuries. This occurred a couple hours ago. Exam is [well-appearing 57-year-old female. Vital signs stable afebrile. H EENT exam shows primary and light. Edgemon is intact. No droop. No face or head trauma. Neck nontender. Back nontender. Lungs clear. Heart regular rhythm no murmur. Chest wall tender in the right lower anterior lateral rib cage. No ecchymosis or bruising. No subcu air crepitus. No bony deformity. Tender to palpation. Abdomen soft nondistended normal bowel sounds no peritoneal signs. Tender in the right upper quadrant of the abdomen and flank but again no hematoma. Rest the abdomen nontender. Moving all 4 extremities significant weakness left upper and left lower extremity which is chronic. She is awake and alert. Answering questions following commands.] Medical Decision Making [patient did not need any medications for pain. Will get a chest x-ray two-view and a CAT scan of the abdomen and pelvis to rule out any solid organ injuries or rib fractures.] Other additions or changes: [Chest x-ray 2 view showed no acute abnormality. CT abdomen right is unremarkable.] History & Record Review Discussion w/independent historian: Patient and Family Lab Data Labs: Laboratory Results - last 24 hr 10/13/23 16:55 Sodium 141 Potassium 4.0 Chloride 113 H Carbon Dioxide 23.0 Anion Gap 5 BUN 19 H Creatinine 0.69 Estim Creat Clear Calc 98.83 Est GFR (MDRD) Af Amer 112 Est GFR (MDRD) Non-Af 93 BUN/Creatinine Ratio 27.6 H Glucose 145 H Calcium 9.0 Radiography Chest X-Ray - ED: 2 View, Read by ED Physician, Normal, Heart, Lungs, Mediastinum, Bony Structures, No Acute Disease and Chronic Changes Diagnostic Testing: Clinical Impression(s) from Imaging Studies Abdomen/Pelvis CT 10/13/23 16:39 IMPRESSION: Right renal cysts. Mild colonic diverticulosis. Electronically Signed: Nitin Mercer DO at 18:10 EST , Chest x-ray, 2 views, AP lateral, interpreted by myself shows no acute abnormality. No rib fracture. No pneumothorax. Discharge Plan Triage Chief Complaint: Chest Other ED Midlevel Provider: Tej Smith ED Provider: Boy Kevin Dx/Rx/DC Orders Clinical Impression: Chest wall contusion, Abdominal muscle strain Instructions: ED Muscle Strain, Abdomen, ED Bruise, Rib Prescriptions: No Action levetiracetam [Keppra] 500 mg tablet 500 mg PO BID omeprazole 40 mg capsule,delayed release(DR/EC) 40 mg PO DAILY Qty: 30 1RF lacosamide [Vimpat] 200 mg tablet 200 mg PO DAILY multivitamin Tablet 1 tab PO DAILY oxycodone-acetaminophen 5-325 mg tablet 1 - 2 tab PO Q6H PRN (Reason: pain) 3 Days Qty: 10 0RF Primary Care Provider: Kwan Lundberg Referrals: Kwan Lundberg MD [Primary Care Provider] - Activity Restrictions/Additional Instructions: Please follow-up outpatient. Return for any worsening symptoms. Disposition Disposition: Home, Self Care
--- NOTE | 2023-10-13 16:39 | CT_ITS ---
STUDY: CT ABDOMEN AND PELVIS WITH CONTRAST REASON FOR EXAM: Female, 57 years old. blunt ruq abd trauma RADIATION DOSAGE (If Supplied By Facility): CTDIvol = ( 16.81 ) mGy, DLP = ( 1270.11 ) mGycm TECHNIQUE: Transaxial images were obtained from the dome of the diaphragm to the symphysis pubis without oral contrast. IV 100mL Isovue-370 was administered. Sagittal and coronal images were reconstructed. Individualized dose optimization techniques were used for this CT. COMPARISON: None. FINDINGS: The visualized lung bases are unremarkable. The visualized portions of the heart are within normal limits. Normal liver. Nonvisualization of the gallbladder. No significant dilatation of the extrahepatic biliary system. Normal spleen. Normal pancreas. Normal bilateral adrenal glands. Up to 1.7 cm cysts in the right kidney. Normal left kidney. Normal visualized stomach. Normal small intestine. Diverticulosis of the colon. The appendix is not visualized. Calcified abdominal aorta. Normal inferior vena cava. Normal retroperitoneum. Normal urinary bladder. Normal abdominal wall. Normal osseous structures. CT/Abdomen/Pelvis W IV Cont ONLY IMPRESSION: Right renal cysts. Mild colonic diverticulosis. Electronically Signed: Nitin Mercer DO at 18:10 EST Reading Location ID and State: [facility] / [place] Tel [phone], Service support ,
[2023-10-13 17:34] LABS: Anion Gap 5 (5-15); BUN 19 mg/dL (7-18); BUN/Creat Ratio 27.6 RATIO (10-20); Chloride 113 mmol/L (98-107); Creatinine, Serum 0.69 mg/dL (0.55-1.02); EST Glomerular Filtration Rate 93 mL/min (>60); Est Glom Filt Rate - Afr Amer 112 mL/min (>60); Estimated Creatinine Clearance 98.83 ml/min; Glucose 145 mg/dL (74-106); Sodium Level 141 mmol/L (136-145)
--- NOTE | 2023-10-13 17:50 | RAD_ITS ---
INDICATION: right lower rib cage injury EXAMINATION/TECHNIQUE: X-RAY - XR Chest 2 Views COMPARISON: FINDINGS: LINES/DEVICES: None. LUNGS: No consolidation, edema or effusion. No pneumothorax. MEDIASTINUM AND CARDIOVASCULAR STRUCTURES: Cardiac silhouette not enlarged. Central airways and mediastinal contour are unremarkable. BONES AND SOFT TISSUES: Unremarkable. RAD/Chest PA and Lateral IMPRESSION: No radiographic evidence of acute cardiopulmonary disease. Electronically Signed: Nitin Mercer DO at 18:28 EST ,
[2023-10-13 19:02] VITALS: BP 149/65; PULSE 75; RESP 16; TEMP 36.8; O2SAT 96
== END 2023-10-13 19:03 | disposition home or self-care (01) ==
PROVIDERS: Emergency Provider Emergency Medicine; PCP Family Medicine; Visit Provider Emergency Medicine
DX: S20.20XA Contusion of thorax, unspecified, initial encounter (principal); G81.92 Hemiplegia, unspecified affecting left dominant side; R56.9 Unspecified convulsions; Z87.891 Personal history of nicotine dependence; X58.XXXA Exposure to other specified factors, initial encounter; Y93.89 Activity, other specified; Z79.899 Other long term (current) drug therapy; K21.9 Gastro-esophageal reflux disease without esophagitis; S39.011A Strain of muscle, fascia and tendon of abdomen, initial encounter; Z90.49 Acquired absence of other specified parts of digestive tract
CPT/HCPCS: 71046; 74177; 80048; 99283; Q9967; A4216

== ENCOUNTER → 2023-11-01 | Outpatient (CLI) | payer MEDICAID, SELFPAY ==
--- NOTE | 2023-11-01 14:32 | CT_ITS ---
STUDY: CT BRAIN WITHOUT CONTRAST REASON FOR EXAM: Female, 57 years old. GLIOBLASTOMA. Increasing left-sided weakness with slurred speech. RADIATION DOSAGE (If Supplied By Facility): CTDIvol = ( 47.06 ) mGy, DLP = ( 907.97 ) mGycm TECHNIQUE: Transaxial CT imaging of the brain was performed without administration of intravenous contrast material. Individualized dose optimization techniques were used for this CT. COMPARISON: Comparison is made with prior study dated September 24, 2021. FINDINGS: Normal soft tissue structures. The patient is status post right temporoparietal craniotomy. There is evidence of a vasogenic edema in the right temporoparietal occipital lobes. No significant compression of the right lateral ventricle or shift of the midline is seen. Focal encephalomalacia is seen in the anterior right temporal lobe. Normal basal ganglia and thalami. Normal brainstem. Normal cerebellum. There is no intracranial hemorrhage. There are no findings of an acute ischemic infarction. Normal visualized paranasal sinuses. CT/Brain/Head without Contrast IMPRESSION: Vasogenic edema involving the right temporal parietal occipital lobes without significant mass effect or shift of the midline towards the left side. Focal encephalomalacia is seen in the anterior aspect of the right temporal lobe. Electronically Signed: Sergio Ramirez MD at 14:53 EDT ,
== END | disposition home or self-care (01) ==
LOC: CT 13:55
PROVIDERS: PCP Family Medicine
DX: C71.9 Malignant neoplasm of brain, unspecified (principal)
CPT/HCPCS: 70450

== ENCOUNTER → 2023-11-29 | Outpatient (CLI) | payer MEDICAID, SELFPAY ==
[2023-11-29 17:20] LABS: Color, Urine Yellow (Yellow); Glucose, Dipstick 250 mg/dl (Normal); Ketone-Dipstick 5 mg/dl (Negative); Leukocyte Esterase-Dipstick Negative /ul (Negative); Nitrite-Dipstick Negative (Negative); Occult Blood-Urine 10 /ul (Negative); Protein-Dipstick Negative (Negative); Urine Bilirubin Dipstick Negative (Negative); Urine Clarity Clear (Clear); Urine Urobilinogen Normal (Normal)
[2023-11-29 17:22] LABS: Absolute Lymphocyte Count 0.46 X10^3/uL (0.83-4.51); Absolute Neutrophil Count 11.1 X10^3/uL (2.0-7.7); Basophil# 0.06 X10^3/uL; Basophil% 0.5 % (0-1); Eosinophil# 0.01 X10^3/uL; Eosinophils% 0.1 % (0-5); Hematocrit 37.4 % (37-47); Hemoglobin 12.4 g/dL (12.0-15.0); Lymphocyte # 0.46 X10^3/ul (0.83-4.51); Lymphocyte % 3.7 % (19-41); Mean Corp Hgb Conc 33.2 g/dL (32-36); Mean Corpuscular Hgb 31.5 pg (27.0-32.0); Mean Corpuscular Volume 94.9 fL (81-99); Mean Platelet Vol. 9.6 fl (6.2-12.0); Monocyte# 0.45 X10^3/uL; Monocyte% 3.6 % (0-10); NRBC Flagged by Analyzer 0 % (0-5); Neutrophil # 11.09 X10^3/uL (2.7-7.7); Neutrophil % 89.5 % (47-70); POSITIVE DIFFERENTIAL YES; Platelet Count 304 K/mm3 (150-450); RBC Distribution Width CV 13.7 % (11.6-14.6); RBC Distribution Width SD 47.7 fl (35.1-43.9); Red Blood Count 3.94 M/mm3 (4.2-5.4); White Blood Count 12.4 K/mm3 (4.4-11.0)
[2023-11-29 17:52] LABS: ALB/GLOB Ratio 0.8 RATIO (0.9-2.4); AST(SGOT) 108 U/L (15-37); Alanine Aminotransfer ALT/SGPT 242 U/L (13-56); Albumin, Serum 2.8 g/dL (3.2-5.0); Alkaline Phosphatase 99 U/L (45-117); Anion Gap 7 (5-15); BUN 21 mg/dL (7-18); BUN/Creat Ratio 29.8 RATIO (10-20); Calcium,Total 9.1 mg/dL (8.5-10.1); Chloride 106 mmol/L (98-107); EST Glomerular Filtration Rate 90 mL/min (>60); Est Glom Filt Rate - Afr Amer 109 mL/min (>60); Globulin 3.7 g/dL (2.2-4.2); Glucose 226 mg/dL (74-106); Protein, Total 6.5 g/dL (6.4-8.2); Sodium Level 138 mmol/L (136-145)
== END | disposition home or self-care (01) ==
LOC: LAB 15:51
PROVIDERS: PCP Family Medicine
DX: C71.2 Malignant neoplasm of temporal lobe (principal)
CPT/HCPCS: 36415; 80053; 81002; 85025; 87077; 87086; 87088; 87186

== ENCOUNTER 2024-01-09 07:34 | Emergency (ER) | payer MEDICAID, SELFPAY ==
[2024-01-09 07:36] VITALS: BP 171/93; PULSE 97; RESP 20; TEMP 36.4; O2SAT 92; O2SAT 94; BMI 42.9
--- NOTE | 2024-01-09 07:49 | EDS_ITS ---
HPI History of Present Illness Chief Complaint: Seizure Informant: patient and spouse/S.O. Onset/Context/Timing Onset: Today Context: Sudden Onset Timing: Intermittent and Lasts (Approximately 10 minutes) Quality: Shaking Location: Right arm and leg Worsened by: Nothing Relieved by: Nothing Narrative Narrative: Patient presents with a seizure that occurred this morning. Patient has a history of seizures. Patient has a history of glioblastoma. states that patient's head turned to the left and her right arm and leg were shaking. Patient states this is different than her previous seizures and that her head was turned in her arm was shaking. states it is usually just the leg that is shaking. denies any shaking of the left upper or lower extremity. states that this lasted approximately 10 minutes. Patient denies any syncopal episodes or loss of consciousness. [facility] Medical History (Updated 01/09/24 @ 10:[address] Kwan [place], DO) Wears glasses Wears contact lenses Cancer Anxiety Marijuana use Seizures Gastric reflux Former smoker History of stress test History of rheumatic fever Glioma of brain Abdominal pain Home Medications ?Medication ?Instructions ?Recorded ?Last Taken ?Type multivitamin 1 tab PO DAILY 09/24/21 Unknown History levetiracetam 500 mg tablet 500 mg PO BID 04/19/23 04/24/23 05:45 History (Teofilo) omeprazole 40 mg capsule,delayed 40 mg PO DAILY #30 caps 04/19/23 Unknown Rx release oxycodone-acetaminophen 5 mg-325 1 - 2 tab PO Q6H PRN pain 3 days 04/24/23 Unknown Rx mg tablet #10 tabs lacosamide 200 mg tablet (Vimpat) 200 mg PO DAILY 05/09/23 Unknown History Allergy/AdvReac Type Severity Reaction Status Date / Time amoxicillin Allergy Itching Verified 01/09/24 07:35 Family History (Updated 04/19/23 @ 09:56 by Camila Astorga) Mother Hypertension Thyroid disorder Brother Cancer bladder Father Cancer lung Surgical History Status post cholecystectomy S/P laparoscopy History of craniotomy Social History Smoking Status: Former smoker alcohol intake: never ROS ROS ED Constitutional Constitutional ED: Denies chills or fever(s) Eyes Eyes: Denies blurry vision or change in vision ENT ENT ED: Denies rhinorrhea or sore throat Cardiovascular Cardiovascular: Denies chest pain or palpitations Respiratory/Chest Respiratory/Chest: Denies cough or dyspnea Gastrointestinal Gastrointestinal: Reports nausea; Denies vomiting Genitourinary Genitourinary ED: Denies dysuria or hematuria Musculoskeletal Musculoskeletal: Denies back pain or neck pain Integumentary Denies abscess or rash Neurologic Neurologic: Reports headache(s); Denies weakness Allergic/Immunologic Allergic/Immunologic ED: Denies mouth swelling or urticaria EXAM Physical Exam Const Vital Signs: 01/09/24 07:36 01/09/24 08:35 01/09/24 08:57 Temperature 97.5 F L Temperature Source Temporal Pulse Rate 97 100 98 Respiratory Rate 20 H 20 H 18 Blood Pressure 171/93 H 152/93 H 158/72 H Blood Pressure Mean 119 112 100 Pulse Ox 92 92 94 Oxygen Delivery Method Room Air Room Air Nasal Cannula Oxygen Flow Rate (L/min) 2 2 01/09/24 09:56 Temperature Temperature Source Pulse Rate 89 Respiratory Rate 20 H Blood Pressure 133/71 H Blood Pressure Mean 91 Pulse Ox 94 Oxygen Delivery Method Room Air Oxygen Flow Rate (L/min) 2 Positive well nourished and well developed General Appearance ED: well developed and NAD HEENT Reports moist mucous membranes Neck supple and no JVD Resp normal respiratory effort and clear to auscultation bilaterally Cardio regular rate and regular rhythm GI non-tender and non-distended Palpation: soft Neuro oriented x3, CN's II-XII intact bilaterally and no sensory deficits noted Sensorium / Orientation: alert Psych mental status grossly normal MDM MDM MDM Narrative Medical decision making narrative: Differential diagnosis includes breakthrough seizure, electrolyte abnormality, urinary tract infection, and intracranial bleeding. CT scan of the brain will be obtained to assess for intracranial bleeding and change in size of glioblastoma. CBC will be obtained to assess for leukocytosis and anemia. Basic metabolic profile will be obtained to assess for electrolyte abnormality and renal function. Urinalysis will be obtained to assess for urinary tract infection and hematuria. Lab Data Attestation: I reviewed the patient's lab results. Lab results narrative: CBC was reviewed and was within normal limits. Basic metabolic profile was reviewed and was essentially within normal limits. Urinalysis was reviewed. There is no evidence of urinary tract infection or hematuria. Labs: Laboratory Results - last 24 hr 01/09/24 01/09/24 08:29 08:34 WBC 7.3 RBC 4.02 L Hgb 12.6 Hct 39.2 MCV 97.5 MCH 31.3 MCHC 32.1 RDW Std Deviation 50.8 H RDW Coeff of Richard 14.1 Plt Count 197 MPV 9.1 Immature Gran % (Auto) 3.300 H Neut % (Auto) 81.2 H Lymph % (Auto) 9.8 L [place] % (Auto) 4.0 Eos % (Auto) 1.0 Baso % (Auto) 0.7 Absolute Neuts (auto) 6.0 Absolute Lymphs (auto) 0.72 L Nucleated RBC % 0 Sodium 139 Potassium 4.0 Chloride 108 H Carbon Dioxide 25.0 Anion Gap 6 BUN 15 Creatinine 0.61 Estim Creat Clear Calc 126.98 Est GFR (MDRD) Af Amer 129 Est GFR (MDRD) Non-Af 107 BUN/Creatinine Ratio 24.6 H Glucose 147 H Calcium 8.8 Urine Color Yellow Urine Clarity Sl. Cloudy Urine pH 6.0 Ur Specific [place] 1.020 Urine Protein 30 H Urine Glucose (UA) Normal Urine Ketones Negative Urine Occult Blood 10 H Urine Nitrite Negative Urine Bilirubin Negative Urine Urobilinogen 1 H Ur Leukocyte Esterase Negative Urine RBC 0-5 SEEN Urine WBC 0 SEEN Ur Squamous Epith Cells 0-5 SEEN Urine Bacteria 0 SEEN Urine Mucus 0 SEEN Radiography Diagnostic Testing: Clinical Impression(s) from Imaging Studies Brain CT 01/09/24 08:10 IMPRESSION: Stable foci of low attenuation within the right temporal, parietal and occipital lobes may be secondary to edema or small vessel ischemia , cannot exclude an underlying neoplastic process. Stable encephalomalacia of the right temporal lobe. Electronically Signed: Dahiana Quiroz MD at 9:08 EDT , CT scan of the brain was obtained. There is low-attenuation with the right temporal, parietal, and occipital lobes. This is stable compared to previous CT scans. This was interpreted by the radiologist was also independently reviewed by myself. Treatment and Re-Evaluation :: Seizure precautions were maintained. Patient had no further seizure episodes here. Patient was advised of her findings. Patient was advised that we are unable to do a Keppra level here. Patient was instructed to follow-up with her primary care physician, neurologist, and oncologist for further evaluation and medication adjustments. Patient and family understood and were agreeable with the plan. All questions were answered. Discharge Plan Triage Chief Complaint: Seizure ED Provider: Kwan Colorado Dx/Rx/DC Orders Clinical Impression: Seizures, Glioma of brain Instructions: ED Seizure, Recurrent (Adult) Prescriptions: No Action levetiracetam [Keppra] 500 mg tablet 500 mg PO BID omeprazole 40 mg capsule,delayed release(DR/EC) 40 mg PO DAILY Qty: 30 1RF lacosamide [Vimpat] 200 mg tablet 200 mg PO DAILY multivitamin Tablet 1 tab PO DAILY oxycodone-acetaminophen 5-325 mg tablet 1 - 2 tab PO Q6H PRN (Reason: pain) 3 Days Qty: 10 0RF Primary Care Provider: Kwan Lundberg Referrals: Kwan Lundberg MD [Primary Care Provider] - 3-5 Days Activity Restrictions/Additional Instructions: Also follow-up with your neurologist and oncologist. We are unable to do a Keppra level here in the emergency department. Your neurologist may be able to order this and adjust your medications. Print Language: Indonesian Disposition Disposition: Home, Self Care
--- NOTE | 2024-01-09 08:10 | CT_ITS ---
INDICATION: Seizure EXAMINATION: CT BRAIN - CT Head or Brain W/O Contrast Injection TECHNIQUE: Multiple axial images were obtained of the head without intravenous contrast. The protocol utilizes one or more of the following dose reduction techniques: automated exposure control, adjustment of mA and/or kV according to patient size,and/or use of iterative reconstruction technique. IV Contrast dosage and agent: None. RADIATION DOSAGE (If Supplied By Facility): CTDIvol = ( 44.99 ) mGy, DLP = ( 779.24 ) mGycm COMPARISON: September 24, 2021 and November 01, 2023 FINDINGS: BRAIN PARENCHYMA: No intra- or extra-axial hemorrhage. There are stable foci of low attenuation within the right parietal, right occipital and right temporal lobes also extending into the posterior limb of the right internal capsule. There is a stable region of encephalomalacia within the right temporal lobe. No intracranial mass or mass effect. Posterior fossa structures are unremarkable. CSF SPACES: Appropriate for age. No hydrocephalus. Basal cisterns are patent. CALVARIUM, SKULL BASE, PARANASAL SINUSES AND MASTOID AIR CELLS: Clear. There are postsurgical changes of the right calvarium. ORBITS: Both globes, extraocular muscles, optic nerves and retrobulbar fat appear unremarkable. ASPECTS Score for Acute Strokes: 10 CT/Brain/Head without Contrast IMPRESSION: Stable foci of low attenuation within the right temporal, parietal and occipital lobes may be secondary to edema or small vessel ischemia , cannot exclude an underlying neoplastic process. Stable encephalomalacia of the right temporal lobe. Electronically Signed: Dahiana Quiroz MD at 9:08 EDT ,
[2024-01-09 08:33] LABS: Absolute Lymphocyte Count 0.72 X10^3/uL (0.83-4.51); Basophil# 0.05 X10^3/uL; Basophil% 0.7 % (0-1); Eosinophil# 0.07 X10^3/uL; Hematocrit 39.2 % (37-47); Hemoglobin 12.6 g/dL (12.0-15.0); Lymphocyte # 0.72 X10^3/ul (0.83-4.51); Lymphocyte % 9.8 % (19-41); Mean Corp Hgb Conc 32.1 g/dL (32-36); Mean Corpuscular Hgb 31.3 pg (27.0-32.0); Mean Corpuscular Volume 97.5 fL (81-99); Mean Platelet Vol. 9.1 fl (6.2-12.0); Monocyte# 0.29 X10^3/uL; NRBC Flagged by Analyzer 0 % (0-5); Neutrophil # 5.96 X10^3/uL (2.7-7.7); Neutrophil % 81.2 % (47-70); Platelet Count 197 K/mm3 (150-450); RBC Distribution Width CV 14.1 % (11.6-14.6); RBC Distribution Width SD 50.8 fl (35.1-43.9); Red Blood Count 4.02 M/mm3 (4.2-5.4); White Blood Count 7.3 K/mm3 (4.4-11.0)
[2024-01-09 08:35] VITALS: BP 152/93; PULSE 100; RESP 20; O2SAT 92
[2024-01-09 08:39] LABS: Bacteria 0 SEEN /hpf (None Seen); Mucous, Urine 0 SEEN /hpf (<or=2+); White Blood Cells 0 SEEN /hpf (0-5)
[2024-01-09 08:45] LABS: Anion Gap 6 (5-15); BUN 15 mg/dL (7-18); BUN/Creat Ratio 24.6 RATIO (10-20); Calcium,Total 8.8 mg/dL (8.5-10.1); Chloride 108 mmol/L (98-107); Creatinine, Serum 0.61 mg/dL (0.55-1.02); EST Glomerular Filtration Rate 107 mL/min (>60); Est Glom Filt Rate - Afr Amer 129 mL/min (>60); Estimated Creatinine Clearance 126.98 ml/min; Glucose 147 mg/dL (74-106); Sodium Level 139 mmol/L (136-145)
[2024-01-09 08:49] LABS: Color, Urine Yellow (Yellow); Glucose, Dipstick Normal (Normal); Ketone-Dipstick Negative (Negative); Leukocyte Esterase-Dipstick Negative /ul (Negative); Nitrite-Dipstick Negative (Negative); Occult Blood-Urine 10 /ul (Negative); Protein-Dipstick 30 mg/dl (Negative); Urine Bilirubin Dipstick Negative (Negative); Urine Clarity Sl. Cloudy (Clear); Urine Urobilinogen 1 mg/dl (Normal)
[2024-01-09 08:56] LABS: Red Blood Cells-Urine 0-5 SEEN /hpf (0-5); Squamous Epithelial Cells - UA 0-5 SEEN /hpf (5-10)
[2024-01-09 08:57] VITALS: BP 158/72; PULSE 98; RESP 18; O2SAT 94
[2024-01-09 09:56] VITALS: BP 133/71; PULSE 89; RESP 20; O2SAT 94
[2024-01-09 10:29] VITALS: BP 131/89; PULSE 88; RESP 18; TEMP 36.4; O2SAT 94
== END 2024-01-09 10:56 | disposition home or self-care (01) ==
PROVIDERS: Emergency Provider Emergency Medicine; PCP Family Medicine; Visit Provider Emergency Medicine
DX: G40.909 Epilepsy, unspecified, not intractable, without status epilepticus (principal); C71.9 Malignant neoplasm of brain, unspecified; Z87.891 Personal history of nicotine dependence; Z79.899 Other long term (current) drug therapy
CPT/HCPCS: 70450; 80048; 81001; 85025; 99284; A4216